=== PATIENT | male | born 1950 | race Caucasian/White ===

== ENCOUNTER 2017-05-19 20:50 | Inpatient (IN) | payer MEDICARE ==
[2017-05-19] MEDS ORDERED: Sodium Chloride 0.9% 1000 ML 1,000 ML IV STA (20:55)
[2017-05-19] MEDS ORDERED: Adacel Vial IM ONE ×2 (21:00→22:02)
[2017-05-19] MEDS ORDERED: BACIGUENT PACKET TP ONE (21:00)
--- NOTE | 2017-05-19 21:05 | ERPHSYRPT ---
- History of Present Illness Source: patient, EMS, police Exam Limitations: clinical condition Patient Subjective Stated Complaint: pt is here per ems after being called by pt gurmeet because pt is falling and very confused -he arr talking but is confused Triage Nursing Assessment: pt is awake and alking but confused Physician History: According to EMS was called at home by the girlfriend patient has been agitated combative and multiple falls with resultant contusions abrasions and bruising and markedly changed mental status from usual state. Multiple medications were found in the home some of which were his and others from the girlfriend who has had a recently broken pelvis. Patient was very agitated and combative for EMS and law enforcement was called and patient was transferred to the hospital at this time. Patient is disoriented to time and place does know the president only. Timing/Duration: today Severity: severe Associated Symptoms: other (confusion/delirium as noted above) Allergies/Adverse Reactions: Penicillins Allergy (Unverified 05/20/17 03:55) Home Medications: Unobtainable [Unobtainable] 05/19/17 [History] - Review of Systems Constitutional: Other (see history of present illness confusion/delirium with multiple traumatic injuries) Eyes: No Symptoms Ears, Nose, & Throat: No Symptoms Respiratory: No Symptoms Cardiac: No Symptoms Abdominal/Gastrointestinal: No Symptoms (morning) Genitourinary Symptoms: No Symptoms Musculoskeletal: No Symptoms Skin: Rash, Skin Lesions, Other (multiple abrasions contusions and ecchymosis on severe psoriasis of her lower extremities) Neurological: Irritability Psychological: Alcohol Abuse (history of), Anxiety, Depression, Emotional Lability, Mood Changes, Other (as noted above) Endocrine: No Symptoms Hematologic/Lymphatic: Easy Bleeding, Easy Bruising Immunological/Allergic: No Symptoms All Other Systems: Reviewed and Negative - Past Medical History Musculoskeletal History: Other (chronic back pain And chronic lower extremity severe psoriasis) History: No Pertinent History Psycho-Social History: Anxiety Male Reproductive Disorders: No Pertinent History - Social History Smoking Status: Current every day smoker Exposure to second hand smoke: Yes Patient Lives Alone: No - Nursing Vital Signs Nursing Vital Signs: Initial Vital Signs Temperature 100 F 05/19/17 20:51 Pulse Rate 120 H 05/19/17 20:51 Respiratory Rate 24 05/19/17 20:51 Blood Pressure 147/75 05/19/17 20:51 O2 Sat by Pulse Oximetry 94 L 05/19/17 20:51 Pain Scale Pain Intensity 0 - Physical Exam General Appearance: moderate distress, alert, anxiety, thin Eye Exam: PERRL/EOMI Ears, Nose, Throat Exam: normal ENT inspection Neck Exam: normal inspection Respiratory Exam: normal breath sounds, lungs clear Cardiovascular Exam: regular rate/rhythm, normal heart sounds, tachycardia, capillary refill <2 sec Gastrointestinal/Abdomen Exam: soft, normal bowel sounds, No tenderness, No distention, No mass, No guarding Male Genitalia Exam: normal genitalia, No hernia Rectal Exam: deferred Back Exam: other (see below) Extremity Exam: other (bilateral knees with circular abrasion but full range of swelling. Diffuse ecchymosis abrasions of her lower extremities but with all full normal range of mo) Neurologic Exam: alert, nml station & gait, disoriented, confusion, agitation Skin Exam: abrasion (as noted), ecchymosis (lower back and gluteal areas) Lymphatic Exam: No adenopathy SpO2 Interpretation: normal SpO2: 94 Oxygen Delivery: Room Air - Course Nursing assessment & vital signs reviewed: Yes EKG Interpreted by Me: RATE (102), Sinus Tach, NORMAL AXIS, NORMAL INTERVALS, NORMAL QRS, Non-specific ST Changes, Other (no previous EKG for comparison) - CT Exams Head CT Interpretation: Negative, Discussed w/radiologist Cervical Spine CT Interpretation: Negative, Discussed w/radiologist Ordered Tests: Active Orders 24 hr Category Date Time Status Up With Assistance ROUTINE Activity 05/20/17 01:41 Active ACCUCHECK [Accucheck] STAT Care 05/19/17 21:06 Completed Admission/Status Order ROUTINE Care 05/20/17 01:41 Active Territory Outside Sales Manager STAT Care 05/19/17 20:55 Completed Clean Catch Urine Specimen STAT Care 05/20/17 00:47 Completed Code Status Order ROUTINE Care 05/20/17 01:41 Active EKG-ER Only STAT Care 05/19/17 21:02 Completed IV Care Q6H Care 05/20/17 01:41 Active IV Insertion STAT Care 05/19/17 20:55 Completed IV Insertion-2nd Peripheral STAT Care 05/19/17 21:58 Completed Miscellaneous Nursing Order ROUTINE Care 05/20/17 01:41 Active NPO (ED) STAT Care 05/19/17 20:55 Completed Neuro Checks Q2H Care 05/20/17 01:41 Active Pulse Oximetry (ED) STAT Care 05/19/17 20:55 Completed Wound Care STAT Care 05/19/17 21:00 Completed CERVICAL SPINE WO CONTRAST [CT] Stat Exams 05/19/17 21:19 Taken HEAD WITHOUT CONTRAST [CT] Stat Exams 05/19/17 21:05 Taken ACETAMINOPHEN Stat Lab 05/19/17 21:10 Completed BLOOD CULTURE Stat Lab 05/19/17 21:50 Received CBC W DIFF Stat Lab 05/19/17 21:10 Completed CBC W DIFF Urgent Lab 05/20/17 01:41 Ordered CK-Creatinine Phosphokinase AM.LAB Lab 05/20/17 04:00 Ordered CK-Creatinine Phosphokinase Urgent Lab 05/19/17 21:10 Completed CMP Stat Lab 05/19/17 21:10 Completed CMP Urgent Lab 05/20/17 01:41 Ordered ETHYL ALCOHOL Stat Lab 05/19/17 21:10 Completed Lactic Acid AM.LAB Lab 05/20/17 03:30 Completed Lactic Acid Stat Lab 05/19/17 21:05 Completed Lactic Acid Stat Lab 05/19/17 23:08 Completed Myoglobin AM.LAB Lab 05/20/17 04:00 Ordered Myoglobin Stat Lab 05/19/17 21:10 Completed PROTIME WITH INR Stat Lab 05/19/17 21:10 Completed PTT Stat Lab 05/19/17 21:10 Completed SALICYLATE Stat Lab 05/19/17 21:10 Completed TROPONIN Q3H Lab 05/19/17 21:10 Completed TROPONIN Q3H Lab 05/20/17 00:20 Completed TROPONIN Q3H Lab 05/20/17 03:05 Completed TROPONIN Q3H Lab 05/20/17 06:00 Ordered TROPONIN Q3H Lab 05/20/17 09:00 Ordered TSH [TSH, 3RD Generation] Stat Lab 05/19/17 21:10 Completed UA W/ MICROSCOPIC Stat Lab 05/19/17 22:35 Completed Urine Triage Profile Stat Lab 05/19/17 22:35 Completed Transfer Order Routine Transfer 05/20/17 00:16 Completed Medication Summary Generic Name Dose Route Start Last Admin Trade Name Freq PRN Reason Stop Dose Admin Potassium Chloride/Sodium Chloride 1,000 mls @ 100 mls/hr 05/20/17 01:41 07/27 02:47 Sodium Chloride 0.9% W/ 40 Meq Kcl 1000ml IV 06/19/17 01:40 100 mls/hr .Q10H FREDDY Administration Lorazepam 0.5 mg 05/20/17 01:41 05/20/17 01:49 Ativan 2 Mg/1 Ml Vial IV 06/19/17 01:40 0.5 mg Q4H PRN PRN Administration ANXIETY/AGITATION Ondansetron HCl 4 mg 05/20/17 01:41 Zofran 4 Mg/2 Ml Vial IV 06/19/17 01:40 Q6H PRN PRN NAUSEA/VOMITING Thiamine HCl 100 mg 05/20/17 03:00 05/20/17 02:47 Thiamine 200 Mg/2 Ml IV 05/20/17 03:01 100 mg ONCE ONE Administration Ziprasidone 20 mg 05/20/17 03:15 05/20/17 03:40 Geodon 20 Mg Inj IM 05/20/17 03:16 20 mg STAT ONE Administration Discontinued Medications Generic Name Dose Route Start Last Admin Trade Name Freq PRN Reason Stop Dose Admin Bacitracin 9 gm 05/19/17 21:00 05/19/17 22:58 Baciguent Packet TP 05/19/17 21:01 0.9 gm STAT ONE Administration Bacitracin Confirm 05/19/17 22:19 Baciguent Packet Administered 05/19/17 22:20 Dose 2 gm .ROUTE .STK-MED ONE Diphtheria/Tetanus/Acell Pertussis 0.5 ml 05/19/17 21:00 05/19/17 22:04 Adacel Vial IM 05/19/17 21:01 0.5 ml .ONCE ONE Administration Diphtheria/Tetanus/Acell Pertussis Confirm 05/19/17 22:02 Adacel Vial Administered 05/19/17 22:03 Dose 0.5 ml IM .STK-MED ONE Sodium Chloride 1,000 mls @ 999 mls/hr 05/19/17 20:55 05/19/17 21:46 Sodium Chloride 0.9% 1000 Ml IV 05/19/17 21:55 999 mls/hr .Q1H1M STA Administration Sodium Chloride Confirm 05/19/17 21:37 Sodium Chloride 0.9% 1000 Ml Administered 05/19/17 21:38 Dose 1,000 mls @ ud .ROUTE .STK-MED ONE Ceftriaxone Sodium/Dextrose 2 g in 50 mls @ 100 mls/hr 05/19/17 21:54 22:03 Rocephin 2 Gm-D5w 50ml Bag IV 05/19/17 22:23 100 mls/hr STAT STA Administration Ceftriaxone Sodium/Dextrose Confirm 05/19/17 22:01 Rocephin 2 Gm-D5w 50ml Bag Administered 05/19/17 22:02 Dose 2 g in 50 mls @ ud IV .STK-MED ONE Lactated Ringer's 1,000 mls @ 999 mls/hr 05/19/17 22:37 05/19/17 22:56 Lactated Ringers IV 05/19/17 23:37 999 mls/hr .Q1H1M ONE Administration Lactated Ringer's Confirm 05/19/17 22:52 Lactated Ringers Administered 05/19/17 22:53 Dose 1,000 mls @ ud IV .STK-MED ONE Sterile Water Confirm 05/20/17 03:38 Sterile Water For Injection 20 Ml Administered 05/20/17 03:39 Dose 20 mls @ ud .ROUTE .STK-MED ONE Lorazepam Confirm 05/20/17 00:23 Ativan 2 Mg/1 Ml Vial Administered 05/20/17 00:24 Dose 2 mg .ROUTE .STK-MED ONE Lorazepam 1 mg 05/20/17 00:28 05/20/17 00:35 Ativan 2 Mg/1 Ml Vial IV 05/20/17 00:29 1 mg STAT ONE Administration Lab/Rad Data: Laboratory Result Diagrams 05/19/17 21:10 05/19/17 21:10 Laboratory Results 05/20/17 05/19/17 05/19/17 Range/Units 00:20 23:08 22:35 WBC (4.0-10.5) K/mm3 RBC (4.1-5.6) M/mm3 Hgb (12.5-18.0) gm/dl Hct (42-50) % MCV (78-100) fl MCH (26-32) pg MCHC (32-36) g/dl RDW (11.5-14.0) % Plt Count (150-450) K/mm3 MPV (6-9.5) fl Gran % (36.0-66.0) % Lymphocytes % (24.0-44.0) % Monocytes % (0.0-12.0) % Eosinophils % (0.00-5.0) % Basophils % (0.0-0.4) % Basophils # (0-0.4) INR (0.8-3.0) APTT (24.1-36.1) SECONDS Sodium (136-145) mEq/L Potassium (3.5-5.1) mEq/L Chloride (98-107) mEq/L Carbon Dioxide (21-32) mEq/L Anion Gap (5-15) MEQ/L BUN (9-20) mg/dL Creatinine (0.55-1.30) mg/dl Estimated GFR ML/MIN Glucose (70-110) MG/DL Lactic Acid 1.1 (0.4-2.0) Calcium (8.5-10.1) mg/dL Total Bilirubin (0.2-1.0) mg/dL AST (15-37) U/L ALT (12-78) U/L Alkaline Phosphatase (46-116) U/L Ammonia (11-32) MMOL/l Creatine Kinase (39-308) U/L Myoglobin (16.3-96.5) NG/ML Troponin I < 0.017 (0.000-0.056) ng/ml Serum Total Protein (6.4-8.2) gm/dL Albumin (3.4-5.0) g/dL TSH 3rd Generation (0.358-3.740) mIU/L Ur Collection Type Urine Color (YELLOW) Urine Appearance (CLEAR) Urine pH (5-6) Ur Specific [place] (1.005-1.025) Urine Protein (Negative) Urine Ketones (NEGATIVE) Urine Blood (0-5) Darrian/ul Urine Nitrite (NEGATIVE) Urine Bilirubin (NEGATIVE) Urine Urobilinogen (0-1) mg/dL Ur Leukocyte Esterase (NEGATIVE) Urine Microscopic RBC (0-2) /HPF Ur Epithelial Cells (FEW) /HPF Amorphous Crystals (NEGATIVE) /HPF Urine Glucose (NEGATIVE) mg/dL Salicylates (2.8-20.0) mg/dl Urine Opiates Level POS. (NEGATIVE) Ur Methadone NEG. (NEGATIVE) Acetaminophen (10-30) ug/ml Urine Barbiturates NEG. (NEGATIVE) Ur Phencyclidine (PCP) NEG. (NEGATIVE) Urine Amphetamine NEG. (NEGATIVE) U Benzodiazepine Level NEG. (NEGATIVE) Urine Cocaine NEG. (NEGATIVE) Urine Marijuana (THC) NEG. (NEGATIVE) Ethyl Alcohol (0.00-0.01) % Specimen Received 05/19/17 05/19/17 05/19/17 Range/Units 22:35 21:10 21:10 WBC (4.0-10.5) K/mm3 RBC (4.1-5.6) M/mm3 Hgb (12.5-18.0) gm/dl Hct (42-50) % MCV (78-100) fl MCH (26-32) pg MCHC (32-36) g/dl RDW (11.5-14.0) % Plt Count (150-450) K/mm3 MPV (6-9.5) fl Gran % (36.0-66.0) % Lymphocytes % (24.0-44.0) % Monocytes % (0.0-12.0) % Eosinophils % (0.00-5.0) % Basophils % (0.0-0.4) % Basophils # (0-0.4) INR (0.8-3.0) APTT (24.1-36.1) SECONDS Sodium (136-145) mEq/L Potassium (3.5-5.1) mEq/L Chloride (98-107) mEq/L Carbon Dioxide (21-32) mEq/L Anion Gap (5-15) MEQ/L BUN (9-20) mg/dL Creatinine (0.55-1.30) mg/dl Estimated GFR ML/MIN Glucose (70-110) MG/DL Lactic Acid (0.4-2.0) Calcium (8.5-10.1) mg/dL Total Bilirubin (0.2-1.0) mg/dL AST (15-37) U/L ALT (12-78) U/L Alkaline Phosphatase (46-116) U/L Ammonia (11-32) MMOL/l Creatine Kinase (39-308) U/L Myoglobin 129.0 H (16.3-96.5) NG/ML Troponin I (0.000-0.056) ng/ml Serum Total Protein (6.4-8.2) gm/dL Albumin (3.4-5.0) g/dL TSH 3rd Generation 2.570 (0.358-3.740) mIU/L Ur Collection Type CLEAN CATCH Urine Color YELLOW (YELLOW) Urine Appearance CLEAR (CLEAR) Urine pH 5.0 (5-6) Ur Specific [place] 1.015 (1.005-1.025) Urine Protein NEGATIVE (Negative) Urine Ketones NEGATIVE (NEGATIVE) Urine Blood 50 (0-5) Darrian/ul Urine Nitrite NEGATIVE (NEGATIVE) Urine Bilirubin NEGATIVE (NEGATIVE) Urine Urobilinogen NORMAL (0-1) mg/dL Ur Leukocyte Esterase NEGATIVE (NEGATIVE) Urine Microscopic RBC 0-2 (0-2) /HPF Ur Epithelial Cells RARE (FEW) /HPF Amorphous Crystals FEW (NEGATIVE) /HPF Urine Glucose NEGATIVE (NEGATIVE) mg/dL Salicylates (2.8-20.0) mg/dl Urine Opiates Level (NEGATIVE) Ur Methadone (NEGATIVE) Acetaminophen (10-30) ug/ml Urine Barbiturates (NEGATIVE) Ur Phencyclidine (PCP) (NEGATIVE) Urine Amphetamine (NEGATIVE) U Benzodiazepine Level (NEGATIVE) Urine Cocaine (NEGATIVE) Urine Marijuana (THC) (NEGATIVE) Ethyl Alcohol (0.00-0.01) % Specimen Received 05/19/17:2235 05/19/17 05/19/17 05/19/17 Range/Units 21:10 21:10 21:10 WBC (4.0-10.5) K/mm3 RBC (4.1-5.6) M/mm3 Hgb (12.5-18.0) gm/dl Hct (42-50) % MCV (78-100) fl MCH (26-32) pg MCHC (32-36) g/dl RDW (11.5-14.0) % Plt Count (150-450) K/mm3 MPV (6-9.5) fl Gran % (36.0-66.0) % Lymphocytes % (24.0-44.0) % Monocytes % (0.0-12.0) % Eosinophils % (0.00-5.0) % Basophils % (0.0-0.4) % Basophils # (0-0.4) INR 1.13 (0.8-3.0) APTT 36.8 H (24.1-36.1) SECONDS Sodium (136-145) mEq/L Potassium (3.5-5.1) mEq/L Chloride (98-107) mEq/L Carbon Dioxide (21-32) mEq/L Anion Gap (5-15) MEQ/L BUN (9-20) mg/dL Creatinine (0.55-1.30) mg/dl Estimated GFR ML/MIN Glucose (70-110) MG/DL Lactic Acid (0.4-2.0) Calcium (8.5-10.1) mg/dL Total Bilirubin (0.2-1.0) mg/dL AST (15-37) U/L ALT (12-78) U/L Alkaline Phosphatase (46-116) U/L Ammonia 25 (11-32) MMOL/l Creatine Kinase 110 (39-308) U/L Myoglobin (16.3-96.5) NG/ML Troponin I < 0.017 (0.000-0.056) ng/ml Serum Total Protein (6.4-8.2) gm/dL Albumin (3.4-5.0) g/dL TSH 3rd Generation (0.358-3.740) mIU/L Ur Collection Type Urine Color (YELLOW) Urine Appearance (CLEAR) Urine pH (5-6) Ur Specific [place] (1.005-1.025) Urine Protein (Negative) Urine Ketones (NEGATIVE) Urine Blood (0-5) Darrian/ul Urine Nitrite (NEGATIVE) Urine Bilirubin (NEGATIVE) Urine Urobilinogen (0-1) mg/dL Ur Leukocyte Esterase (NEGATIVE) Urine Microscopic RBC (0-2) /HPF Ur Epithelial Cells (FEW) /HPF Amorphous Crystals (NEGATIVE) /HPF Urine Glucose (NEGATIVE) mg/dL Salicylates (2.8-20.0) mg/dl Urine Opiates Level (NEGATIVE) Ur Methadone (NEGATIVE) Acetaminophen (10-30) ug/ml Urine Barbiturates (NEGATIVE) Ur Phencyclidine (PCP) (NEGATIVE) Urine Amphetamine (NEGATIVE) U Benzodiazepine Level (NEGATIVE) Urine Cocaine (NEGATIVE) Urine Marijuana (THC) (NEGATIVE) Ethyl Alcohol (0.00-0.01) % Specimen Received 05/19/17 05/19/17 05/19/17 Range/Units 21:10 21:10 21:05 WBC 9.9 (4.0-10.5) K/mm3 RBC 4.56 (4.1-5.6) M/mm3 Hgb 14.5 (12.5-18.0) gm/dl Hct 42.5 (42-50) % MCV 93.2 (78-100) fl MCH 31.8 (26-32) pg MCHC 34.1 (32-36) g/dl RDW 14.7 H (11.5-14.0) % Plt Count 184 (150-450) K/mm3 MPV 10.6 H (6-9.5) fl Gran % 69.3 H (36.0-66.0) % Lymphocytes % 19.7 L (24.0-44.0) % Monocytes % 10.1 (0.0-12.0) % Eosinophils % 0.7 (0.00-5.0) % Basophils % 0.2 (0.0-0.4) % Basophils # 0.02 (0-0.4) INR (0.8-3.0) APTT (24.1-36.1) SECONDS Sodium 139 (136-145) mEq/L Potassium 3.1 L (3.5-5.1) mEq/L Chloride 102 (98-107) mEq/L Carbon Dioxide 23.6 (21-32) mEq/L Anion Gap 16.7 H (5-15) MEQ/L BUN 12 (9-20) mg/dL Creatinine 1.37 H (0.55-1.30) mg/dl Estimated GFR 55 ML/MIN Glucose 111 H (70-110) MG/DL Lactic Acid 2.3 H (0.4-2.0) Calcium 9.5 (8.5-10.1) mg/dL Total Bilirubin 0.70 (0.2-1.0) mg/dL AST 21 (15-37) U/L ALT 12 (12-78) U/L Alkaline Phosphatase 78 (46-116) U/L Ammonia (11-32) MMOL/l Creatine Kinase (39-308) U/L Myoglobin (16.3-96.5) NG/ML Troponin I (0.000-0.056) ng/ml Serum Total Protein 7.5 (6.4-8.2) gm/dL Albumin 4.2 (3.4-5.0) g/dL TSH 3rd Generation (0.358-3.740) mIU/L Ur Collection Type Urine Color (YELLOW) Urine Appearance (CLEAR) Urine pH (5-6) Ur Specific [place] (1.005-1.025) Urine Protein (Negative) Urine Ketones (NEGATIVE) Urine Blood (0-5) Darrian/ul Urine Nitrite (NEGATIVE) Urine Bilirubin (NEGATIVE) Urine Urobilinogen (0-1) mg/dL Ur Leukocyte Esterase (NEGATIVE) Urine Microscopic RBC (0-2) /HPF Ur Epithelial Cells (FEW) /HPF Amorphous Crystals (NEGATIVE) /HPF Urine Glucose (NEGATIVE) mg/dL Salicylates 3.1 (2.8-20.0) mg/dl Urine Opiates Level (NEGATIVE) Ur Methadone (NEGATIVE) Acetaminophen 3.9 L (10-30) ug/ml Urine Barbiturates (NEGATIVE) Ur Phencyclidine (PCP) (NEGATIVE) Urine Amphetamine (NEGATIVE) U Benzodiazepine Level (NEGATIVE) Urine Cocaine (NEGATIVE) Urine Marijuana (THC) (NEGATIVE) Ethyl Alcohol < 0.010 (0.00-0.01) % Specimen Received - Progress Progress: improved, re-examined Progress Note: 05/20/17 00:12"Following a careful discussion with Dr. Rudy Otero regarding the patient who was just recently taken off of Xanax for which she has been on for quite some time. Also patient does have history of heavy drinking. Patient will be admitted to observation [facility]Sur telemetry with Ativan or when necessary and further evaluation by Dr. To in the morning with regard to further testing MRI etc. Discussed with : Blake - Departure Time of Disposition: 00:13 Departure Disposition: Observation Clinical Impression: Multiple traumatic injuries, Multiple contusions, Abrasions of multiple sites, Benzodiazepine withdrawal with delirium, Hypokalemia Altered mental status, unspecified Qualifiers: Altered mental status type: unspecified Qualified Code(s): R41.82 - Altered mental status, unspecified Condition: Fair Critical Care Time: No
[2017-05-19 21:13] LABS: Lactic Acid 2.3 (0.4-2.0)
[2017-05-19 21:20] LABS: BASOPHIL % 0.2 % (0.0-0.4); Eosinophil % 0.7 % (0.00-5.0); Granulocytes % 69.3 % (36.0-66.0); Lymphocytes % 19.7 % (24.0-44.0); Mean Cell Volume 93.2 fl (78-100); Mean Corpuscular Hemoglobin 31.8 pg (26-32); Mean Platelet Volume 10.6 fl (6-9.5); Monocytes % 10.1 % (0.0-12.0); Platelet Count 184 K/mm3 (150-450); Red Blood Count 4.56 M/mm3 (4.1-5.6); Red Cell Distribution Width 14.7 % (11.5-14.0); White Blood Count 9.9 K/mm3 (4.0-10.5)
[2017-05-19] MEDS ORDERED: Sodium Chloride 0.9% 1000 ML 1,000 ML ONE (21:37)
[2017-05-19 21:38] LABS: INR 1.13 (0.8-3.0); PROTIME 12.8 SECONDS (8.83-12.87)
[2017-05-19 21:40] LABS: PTT 36.8 SECONDS (24.1-36.1)
[2017-05-19 21:41] LABS: ALBUMIN 4.2 g/dL (3.4-5.0); ALKALINE PHOSPHATASE 78 U/L (46-116); ANION GAP 16.7 MEQ/L (5-15); BLOOD UREA NITROGEN 12 mg/dL (9-20); CHLORIDE 102 mEq/L (98-107); Carbon Dioxide 23.6 mEq/L (21-32); ETHYL ALCOHOL < 0.010 % (0.00-0.01); Glucose 111 MG/DL (70-110); Potassium 3.1 mEq/L (3.5-5.1); SGOT/AST 21 U/L (15-37); SGPT/ALT 12 U/L (12-78); SODIUM 139 mEq/L (136-145); Total Protein 7.5 gm/dL (6.4-8.2)
[2017-05-19 21:42] LABS: ACETAMINOPHEN 3.9 ug/ml (10-30)
[2017-05-19] MEDS ORDERED: ROCEPHIN 2 Gm-D5w 50ML BAG** 2 G/50 ML IVPB IV STA (21:54)
[2017-05-19 21:57] LABS: TROPONIN < 0.017 ng/ml (0.000-0.056)
[2017-05-19] MEDS ORDERED: ROCEPHIN 2 Gm-D5w 50ML BAG** 2 G/50 ML IVPB IV ONE (22:01)
[2017-05-19] MEDS ORDERED: BACIGUENT PACKET ONE (22:19)
[2017-05-19] MEDS ORDERED: Lactated Ringers 1,000 ML IV ONE ×2 (22:37→22:52)
[2017-05-19 22:54] LABS: ADD URINE CULTURE? NO (NO); Bilirubin NEGATIVE (NEGATIVE); Blood 50 Ery/ul (0-5); COMPLETE URINE MICROSCOPIC? YES; Collection Type CLEAN CATCH; Epithelial Cells RARE /HPF (FEW); Glucose NEGATIVE (NEGATIVE); Leukocyte Esterase NEGATIVE (NEGATIVE)
[2017-05-20] MEDS ORDERED: Ativan 2 MG/1 ML VIAL ONE (00:23)
[2017-05-20] MEDS ORDERED: Ativan 2 MG/1 ML VIAL IV ONE (00:28)
[2017-05-20] MEDS ORDERED: Zofran 4 MG/2 ML VIAL IV PRN (01:41)
[2017-05-20] MEDS: Ativan 2 MG/1 ML VIAL IV PRN ×6 (01:49→18:56)
[2017-05-20] MEDS: SODIUM CHLORIDE 0.9% W/ 40 mEq KCL 1000ML 1,000 ML IV SCH ×2 (02:47→15:59)
[2017-05-20] MEDS ORDERED: THIAMINE 200 MG/2 ML IV ONE (03:00)
[2017-05-20] MEDS ORDERED: Geodon 20 MG INJ IM ONE ×2 (03:15→09:19)
[2017-05-20] MEDS ORDERED: STERILE WATER FOR INJECTION 20 ML 20 ML ONE (03:38)
[2017-05-20 06:28] LABS: BASOPHIL % 0.1 % (0.0-0.4); Eosinophil % 0.9 % (0.00-5.0); Granulocytes % 65.6 % (36.0-66.0); Lymphocytes % 22.6 % (24.0-44.0); Mean Cell Volume 93.6 fl (78-100); Mean Corpuscular Hemoglobin 31.5 pg (26-32); Mean Platelet Volume 10.7 fl (6-9.5); Monocytes % 10.8 % (0.0-12.0); Platelet Count 140 K/mm3 (150-450); Red Blood Count 4.38 M/mm3 (4.1-5.6); Red Cell Distribution Width 14.5 % (11.5-14.0); White Blood Count 7.4 K/mm3 (4.0-10.5)
[2017-05-20 06:52] LABS: ALBUMIN 3.5 g/dL (3.4-5.0); ALKALINE PHOSPHATASE 68 U/L (46-116); ANION GAP 13.4 MEQ/L (5-15); BLOOD UREA NITROGEN 8 mg/dL (9-20); CHLORIDE 105 mEq/L (98-107); Carbon Dioxide 25.8 mEq/L (21-32); Glucose 97 MG/DL (70-110); Potassium 3.1 mEq/L (3.5-5.1); SGOT/AST 24 U/L (15-37); SGPT/ALT 11 U/L (12-78); SODIUM 141 mEq/L (136-145); Total Protein 7.2 gm/dL (6.4-8.2)
[2017-05-20 07:07] LABS: TROPONIN < 0.017 ng/ml (0.000-0.056)
--- NOTE | 2017-05-20 09:20 | PCM.HP ---
History of Present Illness - Chief Complaint Chief Complaint: delirium and hypokalemia Date: 05/20/17 History of Present Illness: is a 66 year old male. 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 She called 911 as he was talking incoherently not making since and kept falling down. He has continued the incoherent speech throughout the night and was trying to get up and pull at things. He was given geodon last night and has woken up this am. He is very restless. he does answer questions appropriately and denies taking any medication that was not prescribed. He was recently weaned off alprazolam and his cymbalta was increased. He states he thinks he is just exhausted he has not been sleeping. - Review of Systems Constitutional: No Fever, No Chills Eyes: No Symptoms Ears, Nose, & Throat: No Symptoms Respiratory: No Cough, No Short Of Breath Cardiac: No Chest Pain, No Edema, No Syncope Abdominal/Gastrointestinal: No Abdominal Pain, No Nausea, No Vomiting, No Diarrhea Genitourinary Symptoms: No Dysuria Musculoskeletal: No Back Pain, No Neck Pain Skin: No Rash Neurological: No Dizziness, No Focal Weakness, No Sensory Changes Psychological: No Symptoms Endocrine: No Symptoms Hematologic/Lymphatic: No Symptoms Immunological/Allergic: No Symptoms Medications & Allergies Home Medications: Home Medication List Unobtainable [Unobtainable] 05/19/17 [History Confirmed 05/19/17] Allergies/Adverse Reactions: Allergies Allergy/AdvReac Type Severity Reaction Status Date / Time Penicillins Allergy Unverified 05/20/17 03:55 - Past Medical History Past Medical History: (Unable to assess.) Neurological History: No Pertinent History ENT History: No Pertinent History Cardiac History: Hypertension CARDIAC HISTORY: Hypertension Respiratory History: No Pertinent History Endocrine Medical History: No Pertinent History Musculoskelatal History: Other (chronic back pain And chronic lower extremity severe psoriasis) History: No Pertinent History Pyscho-Social History: Anxiety Male Reproductive Disorders: No Pertinent History Comment: Unable to assess d/t pt being unreliable historian. Pt unable to provide family information, medical history, surgical history, or allergies. - Past Surgical History Past Surgical History: (unable to assess) Other Surgical History: unobtainable - Social History Smoking Status: Current every day smoker Exposure to second hand smoke: Yes - Physical Exam Vital Signs: Vital Signs - 24 hr Temp Pulse Resp BP Pulse Ox 05/20/17 05:11 94 L 05/20/17 05:01 20 05/20/17 01:01 98.5 F 96 H 20 159/75 96 05/20/17 00:47 70 18 135/88 96 05/19/17 23:24 89 16 144/83 98 05/19/17 21:59 100 F 98 H 20 98 05/19/17 21:57 98 05/19/17 20:51 100 F 120 H 24 147/75 94 L General Appearance: other (is awake traking he is very restless moving all extremities rapidly pressured speech fidgeting and impulsive) Neurologic Exam: alert, disoriented, confusion, abnormal gait, other (unstable gait he was assisted up to the side of the bed to use bedside urinal. He has no obvious focal deficits on exam) Eye Exam: PERRL/EOMI, eyes nml inspection, No scleral icterus, No pale conjunctivae Ears, Nose, Throat Exam: other (blood crusting around lips and oropharynx) Neck Exam: normal inspection, non-tender, supple, full range of motion Respiratory Exam: normal breath sounds, lungs clear, No respiratory distress Cardiovascular Exam: regular rate/rhythm, normal heart sounds, normal peripheral pulses Gastrointestinal/Abdomen Exam: soft, normal bowel sounds, No tenderness, No mass Back Exam: other (multiple contusions and skin tears) Extremity Exam: other (multiple contusions and skin tears consistent with recurrent falls on bilateral upper and lower extremities) Skin Exam: abrasion, ecchymosis, other (chronic psoriasis changes) Lymphatic Exam: No adenopathy Results - Labs Lab/Micro Results: Lab Results-Last 24 Hours 05/20/17 05/20/17 05/20/17 Range/Units 01:41 03:05 03:30 WBC (4.0-10.5) K/mm3 RBC (4.1-5.6) M/mm3 Hgb (12.5-18.0) gm/dl Hct (42-50) % MCV (78-100) fl MCH (26-32) pg MCHC (32-36) g/dl RDW (11.5-14.0) % Plt Count (150-450) K/mm3 MPV (6-9.5) fl Gran % (36.0-66.0) % Lymphocytes % (24.0-44.0) % Monocytes % (0.0-12.0) % Eosinophils % (0.00-5.0) % Basophils % (0.0-0.4) % Basophils # (0-0.4) Sodium 141 (136-145) mEq/L Potassium 3.1 L (3.5-5.1) mEq/L Chloride 105 (98-107) mEq/L Carbon Dioxide 25.8 (21-32) mEq/L Anion Gap 13.4 (5-15) MEQ/L BUN 8 L (9-20) mg/dL Creatinine 0.83 (0.55-1.30) mg/dl Estimated GFR > 60 ML/MIN Glucose 97 (70-110) MG/DL Lactic Acid 1.5 (0.4-2.0) Calcium 8.9 (8.5-10.1) mg/dL Total Bilirubin 0.70 (0.2-1.0) mg/dL AST 24 (15-37) U/L ALT 11 L (12-78) U/L Alkaline Phosphatase 68 (46-116) U/L Creatine Kinase (39-308) U/L Myoglobin (16.3-96.5) NG/ML Troponin I < 0.017 (0.000-0.056) ng/ml Serum Total Protein 7.2 (6.4-8.2) gm/dL Albumin 3.5 (3.4-5.0) g/dL 05/20/17 05/20/17 Range/Units 04:00 06:00 WBC 7.4 (4.0-10.5) K/mm3 RBC 4.38 (4.1-5.6) M/mm3 Hgb 13.8 (12.5-18.0) gm/dl Hct 41.0 L (42-50) % MCV 93.6 (78-100) fl MCH 31.5 (26-32) pg MCHC 33.7 (32-36) g/dl RDW 14.5 H (11.5-14.0) % Plt Count 140 L (150-450) K/mm3 MPV 10.7 H (6-9.5) fl Gran % 65.6 (36.0-66.0) % Lymphocytes % 22.6 L (24.0-44.0) % Monocytes % 10.8 (0.0-12.0) % Eosinophils % 0.9 (0.00-5.0) % Basophils % 0.1 (0.0-0.4) % Basophils # 0.01 (0-0.4) Sodium (136-145) mEq/L Potassium (3.5-5.1) mEq/L Chloride (98-107) mEq/L Carbon Dioxide (21-32) mEq/L Anion Gap (5-15) MEQ/L BUN (9-20) mg/dL Creatinine (0.55-1.30) mg/dl Estimated GFR ML/MIN Glucose (70-110) MG/DL Lactic Acid (0.4-2.0) Calcium (8.5-10.1) mg/dL Total Bilirubin (0.2-1.0) mg/dL AST (15-37) U/L ALT (12-78) U/L Alkaline Phosphatase (46-116) U/L Creatine Kinase 275 (39-308) U/L Myoglobin 204.0 H (16.3-96.5) NG/ML Troponin I < 0.017 (0.000-0.056) ng/ml Serum Total Protein (6.4-8.2) gm/dL Albumin (3.4-5.0) g/dL Assessment/Plan (1) Delirium Current Visit: Yes Status: Acute Assessment & Plan: currently he denies any substance use and the tox screen and alcohol are negative except his prescribed opiates. This may be a manifestation of tin from his Cymbalta being increased or possible alprazolam withdrawal although this appears to have been weaned successfully prior to this past week and he was seen last Jcarlos here with his and was in his normal state when mental status improves will try psych consult will continue to treat supportively had good improvement with the shan will give an additional dose now and continue iv hydration and monitor symptoms his girlfriend was checked on by police and her adult son is there to help her. Code(s): R41.0 - DISORIENTATION, UNSPECIFIED (2) Hypokalemia Current Visit: Yes Status: Acute Code(s): E87.6 - HYPOKALEMIA (3) Multiple traumatic injuries Current Visit: Yes Status: Acute Code(s): T07 - UNSPECIFIED MULTIPLE INJURIES (4) Multiple contusions Current Visit: Yes Status: Acute Code(s): T14.8 - OTHER INJURY OF UNSPECIFIED BODY REGION
[2017-05-20] MEDS: POTASSIUM CHLORIDE 20 mEq IN WATER 100ML 100 ML IV SCH ×2 (09:43→11:40)
[2017-05-20] MEDS: ENOXAPARIN SODIUM SQ SCH (09:43)
--- NOTE | 2017-05-20 11:26 | XRAY ---
Exam: CT of the head without IV contrast from 05/19/2017. CTDI: 58.18 Comparison: None. Indication: Patient fell, altered mental status, multiple contusions and abrasions with petechiae over body. Technique: Non-IV contrast axial images were obtained through the brain. Reconstructed coronal and sagittal images were created and reviewed. Findings: The ventricles appear of normal size and are midline. No focal mass effect or midline shift is seen. No acute intracranial bleed or abnormal extra-axial fluid collection is seen. No low attenuation lesion to suggest an acute territorial infarct or significant focal edema is seen. There are some subtle periventricular and subcortical white matter changes, not inappropriate for the patient's age. Structures of the posterior fossa appear unremarkable. The cortical sulci and sylvian fissures appear within normal limits for the patient's age. I note some vascular calcification within both carotid siphons as well as the distal right vertebral artery. The calvarium of the skull appears intact. The visualized paranasal sinuses appear clear. There is mild deviation of the nasal septum toward the right. The mastoid air cells are clear. The middle ear cavities appear grossly unremarkable. Impression: 1. No acute intracranial bleed or other acute intracranial process is seen.
--- NOTE | 2017-05-20 11:27 | XRAY ---
Exam: CT of the cervical spine without IV contrast from 05/19/2017. CTDI: 94.73 Comparison: None. Indication: Fall, combative, altered mental status, slurred speech, multiple contusions and abrasions, multiple diverticula or body. Technique: Non-IV contrast axial images were obtained of the cervical spine. Reconstructed coronal and sagittal images were created and reviewed. Findings: There is slight convexity of the cervical spine toward the right centered at C4-C5 on the coronal images.. This could be positional. I note some straightening of the cervical spine from C3-C6. This is nonspecific. Consider spasm. I see no acute cervical spine fracture, AP traumatic subluxation, or prevertebral soft tissue swelling. Mild degenerative changes are seen at the preodontoid space. There may be about 1 mm anterior subluxation of C5 over C6 on midline sagittal image #41. This is likely due to some degenerative changes, as mild to moderate posterior facet joint arthropathy is seen at this level. I also note minimal degenerative disc disease at C5-C6 and moderate degenerative disc disease at C6-C7. A small amount of vacuum phenomenon is seen within the C6-C7 disc. Very slight loss of anterior vertebral body height of T1 is seen which I believe is chronic. A small nuchal ligament calcification is seen adjacent to the C6 spinous process posteriorly. There is mild to moderate facet joint arthropathy at C3-C4 and C5-C6 on the right and at C2-C3, C4-C5, and C5-C6 on the left. This appears most pronounced at C4-C5 on the left, followed by C5-C6 and the left. I also note mild uncovertebral osteoarthritis bilaterally at C5-C6 and C6-C7. No cervical ribs are seen. No other focal bone lesion is seen. I see no evidence of significant central canal cervical stenosis. Regarding the neural foramen, there is mild to moderate narrowing of the left C2-C3 neural foramen, mild narrowing of the right C3-C4 neural foramen, moderate to marked narrowing of the left C4-C5 neural foramen, moderate to marked narrowing of the C5-C6 neural foramen bilaterally, moderate narrowing of the left C6-C7 and mild narrowing of the right C6-C7 neural foramen. The visualized lung apices appear unremarkable. Impression: 1. I see no acute cervical spine fracture or AP traumatic subluxation. 2. Degenerative changes are seen throughout the cervical spine, as discussed above. Slight 1 mm anterior subluxation of C5 over C6 is believed to be due to arthritic changes.
[2017-05-20] MEDS: Pepcid 20 MG PO SCH (15:04)
[2017-05-20] MEDS ORDERED: BACIGUENT PACKET TOP PRN (21:16)
[2017-05-20] MEDS: Ativan 2 MG/1 ML VIAL IM PRN (22:16)
[2017-05-21] MEDS ORDERED: Haldol 5 MG IM ONE (00:31)
[2017-05-21] MEDS: Ativan 2 MG/1 ML VIAL IM PRN (01:45)
[2017-05-21 05:37] LABS: BASOPHIL % 0.2 % (0.0-0.4); Eosinophil % 0.2 % (0.00-5.0); Granulocytes % 73.1 % (36.0-66.0); Lymphocytes % 15.3 % (24.0-44.0); Mean Cell Volume 93.3 fl (78-100); Mean Corpuscular Hemoglobin 31.8 pg (26-32); Mean Platelet Volume 10.7 fl (6-9.5); Monocytes % 11.2 % (0.0-12.0); Platelet Count 150 K/mm3 (150-450); Red Blood Count 4.65 M/mm3 (4.1-5.6); Red Cell Distribution Width 14.3 % (11.5-14.0); White Blood Count 11.1 K/mm3 (4.0-10.5)
[2017-05-21] MEDS ORDERED: BACIGUENT 30 GM ONE (06:14)
[2017-05-21] MEDS ORDERED: Ativan 2 MG/1 ML VIAL IM PRN (06:17)
[2017-05-21 06:25] LABS: ALBUMIN 3.8 g/dL (3.4-5.0); ALKALINE PHOSPHATASE 72 U/L (46-116); ANION GAP 17.9 MEQ/L (5-15); BLOOD UREA NITROGEN 8 mg/dL (9-20); CHLORIDE 101 mEq/L (98-107); Carbon Dioxide 24.7 mEq/L (21-32); Glucose 85 MG/DL (70-110); Potassium 3.6 mEq/L (3.5-5.1); SGOT/AST 72 U/L (15-37); SGPT/ALT 19 U/L (12-78); SODIUM 140 mEq/L (136-145); Total Protein 7.8 gm/dL (6.4-8.2)
[2017-05-21] MEDS: BACIGUENT 30 GM TOP PRN ×2 (07:01→16:21)
[2017-05-21] MEDS ORDERED: Rocephin 1000 MG INJ IM ONE (08:15)
[2017-05-21] MEDS ORDERED: Zyprexa Zydis 5 MG PO ONE (08:19)
--- NOTE | 2017-05-21 08:22 | PCM.NOTE ---
Date and Time: 05/21/17816 Subjective Assessment: persistent hallucinations and aggitation. police came last night as he became violent and he was asking them if they could get him any heroin. He is very confused with intermittent brief lucency he denies any pain now he is actively trying to grab an imaginary object in front of him he is mumbling he has not slept much at all since admission he has become more tachycardic and has a new fever this am. Objective Exam General Appearance: no apparent distress Neurologic Exam: alert, other (he follows commands briefly he is actively hallucinating he is mumbling and pressured speech) Skin Exam: warm, dry, ecchymosis, laceration, other (open lacerations and multiple bruises throughout abdomen, back and extremities he has chronic psoriatic changes on his extremities) Ears, Nose, Throat Exam: dry mucous membranes (crusting blood on lips) Neck Exam: supple, full range of motion, No meningismus, No Brudzinski, No Kernig's Lymphatic Exam: No adenopathy Respiratory Exam: normal breath sounds Cardiovascular Exam: tachycardia, No murmur Gastrointestinal/Abdomen Exam: soft, normal bowel sounds, No tenderness OBJECTIVE DATA Vital Signs: Vital Signs - 24 hr Temp Pulse Resp BP Pulse Ox 05/21/17 08:00 100.8 F 117 H 26 H 132/85 93 L 05/21/17 04:00 98.8 F 124 H 20 159/80 93 L 05/20/17 16:00 99.9 F 120 H 22 171/80 95 05/20/17 12:00 99.1 F 107 H 18 153/76 90 L Pain Assessment - Last Documented Pain Intensity 0 Pain Scale Used 0-10 Pain Scale Intake and Output: Intake & Output 05/18/17 05/19/17 05/20/17 05/21/17 11:59 11:59 11:59 11:59 Intake Total 0 1463 Output Total 500 300 Balance -500 1163 Weight 63.503 kg Lab Results: Lab Results-Last 24 Hours 05/20/17 05/21/17 05/21/17 Range/Units 16:49 05:08 05:08 WBC 11.1 H (4.0-10.5) K/mm3 RBC 4.65 (4.1-5.6) M/mm3 Hgb 14.8 (12.5-18.0) gm/dl Hct 43.4 (42-50) % MCV 93.3 (78-100) fl MCH 31.8 (26-32) pg MCHC 34.1 (32-36) g/dl RDW 14.3 H (11.5-14.0) % Plt Count 150 (150-450) K/mm3 MPV 10.7 H (6-9.5) fl Gran % 73.1 H (36.0-66.0) % Lymphocytes % 15.3 L (24.0-44.0) % Monocytes % 11.2 (0.0-12.0) % Eosinophils % 0.2 (0.00-5.0) % Basophils % 0.2 (0.0-0.4) % Basophils # 0.02 (0-0.4) Sodium 140 (136-145) mEq/L Potassium 4.1 3.6 (3.5-5.1) mEq/L Chloride 101 (98-107) mEq/L Carbon Dioxide 24.7 (21-32) mEq/L Anion Gap 17.9 H (5-15) MEQ/L BUN 8 L (9-20) mg/dL Creatinine 0.84 (0.55-1.30) mg/dl Estimated GFR > 60 ML/MIN Glucose 85 (70-110) MG/DL Calcium 9.5 (8.5-10.1) mg/dL Total Bilirubin 1.20 H (0.2-1.0) mg/dL AST 72 H (15-37) U/L ALT 19 (12-78) U/L Alkaline Phosphatase 72 (46-116) U/L Serum Total Protein 7.8 (6.4-8.2) gm/dL Albumin 3.8 (3.4-5.0) g/dL Multi-Disciplinary Progress Notes: Multi-Disciplinary Progress Notes 05/20/17 13:44 Case Management Note by Bri Peters PT IS CONFUSED UNABLE TO ASSESS ANY DISCHARGE NEEDS AT THIS TIME. 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 NO FAMILY OR VISTORS PRESENT. Initialized on 05/20/17 13:44 - END OF NOTE Assessment/Plan (1) Delirium Current Visit: Yes Status: Acute Assessment & Plan: appears likely ingestion of some substance at this time bath salt level pending he has not had iv in all night as he pulled them all out Ativan did not help Geno was little help will try zyprexa sublingual if no help haldol 5mg q30 min until calm tele iv fluids at 150 mL/h will give rocephin IM 1g now while no iv available Code(s): R41.0 - DISORIENTATION, UNSPECIFIED (2) Hypokalemia Current Visit: Yes Status: Resolved Code(s): E87.6 - HYPOKALEMIA (3) Multiple traumatic injuries Current Visit: Yes Status: Acute Code(s): T07 - UNSPECIFIED MULTIPLE INJURIES (4) Multiple contusions Current Visit: Yes Status: Acute Code(s): T14.8 - OTHER INJURY OF UNSPECIFIED BODY REGION
[2017-05-21] MEDS ORDERED: XYLOCAINE 1% HCL 20 ML MDV IJ PRN (08:24)
[2017-05-21] MEDS: Haldol 5 MG IM PRN ×6 (08:26→11:03)
[2017-05-21] MEDS ORDERED: zanTAC 150 MG/10 ML SYRUP PO SCH (10:00)
[2017-05-21] MEDS ORDERED: NON-FORMULARY ITEM (Ranitidine Hcl [Ranitidine Hcl] 300 MG) PO SCH (10:00)
[2017-05-21] MEDS: ENOXAPARIN SODIUM SQ SCH (10:57)
[2017-05-21] MEDS: Dextrose 5% -0.45 NaCl 1000 ML 1,000 ML IV SCH ×3 (11:18→22:37)
[2017-05-21] MEDS ORDERED: Lactated Ringers 1,000 ML IV ONE (11:40)
[2017-05-21] MEDS: PROTONIX 40 MG IV IV SCH (11:55)
[2017-05-21] MEDS: Pepcid 20 MG PO SCH (12:10)
[2017-05-21] MEDS: VALIUM 10 MG/2 ML SYRINGE IV PRN ×4 (12:19→23:10)
[2017-05-21] MEDS: MORPHINE SULFATE 2 MG INJ IV PRN (20:29)
[2017-05-22] MEDS: MORPHINE SULFATE 2 MG INJ IV PRN ×2 (02:19→14:09)
[2017-05-22] MEDS: Dextrose 5% -0.45 NaCl 1000 ML 1,000 ML IV SCH ×2 (05:38→17:54)
[2017-05-22 06:11] LABS: BASOPHIL % 0.1 % (0.0-0.4); Eosinophil % 0.9 % (0.00-5.0); Lymphocytes % 19.5 % (24.0-44.0); Mean Cell Volume 92.1 fl (78-100); Monocytes % 9.5 % (0.0-12.0); Platelet Count 160 K/mm3 (150-450); Red Blood Count 4.41 M/mm3 (4.1-5.6); White Blood Count 7.5 K/mm3 (4.0-10.5)
[2017-05-22 06:38] LABS: ALBUMIN 3.2 g/dL (3.4-5.0); ALKALINE PHOSPHATASE 63 U/L (46-116); ANION GAP 14.2 MEQ/L (5-15); BLOOD UREA NITROGEN 4 mg/dL (9-20); CHLORIDE 100 mEq/L (98-107); Carbon Dioxide 25.5 mEq/L (21-32); Glucose 130 MG/DL (70-110); SGOT/AST 107 U/L (15-37); SGPT/ALT 28 U/L (12-78); SODIUM 137 mEq/L (136-145); Total Protein 7.3 gm/dL (6.4-8.2)
[2017-05-22 06:41] LABS: Potassium 2.7 mEq/L (3.5-5.1)
[2017-05-22] MEDS: POTASSIUM CHLORIDE 20 mEq IN WATER 100ML 20 MEQ/100 ML BAG IV SCH ×2 (07:37→09:42)
[2017-05-22] MEDS ORDERED: FOLNATE IV SCH (08:00)
[2017-05-22] MEDS ORDERED: VITAMINS FOR INFUSION IV SCH (08:00)
[2017-05-22] MEDS ORDERED: [UNRECOGNIZED DRUG - OTHER] IV SCH (08:00)
[2017-05-22] MEDS: ROCEPHIN 1 Gm-D5w 50 ml Bag** 1 G/50 ML IVPB IV SCH ×2 (08:46→09:19)
[2017-05-22] MEDS: PROTONIX 40 MG IV IV SCH (09:42)
[2017-05-22] MEDS: ENOXAPARIN SODIUM SQ SCH (09:42)
[2017-05-22] MEDS ORDERED: TYLENOL 325 MG PO PRN (13:51)
--- NOTE | 2017-05-22 14:03 | PCM.NOTE ---
Date and Time: 05/22/17 7040 Subjective Assessment: He reports that he thinks he may have taken his 's 60 mg cymbalta instead of his 30 mg cymbalta. His nurse states he has not needed any diazepam today. The patient attributes his bruises to bumping into things easily and a history of easy bruising which he wants to see a Transverse Abdominal Muscle Nurse about sometime in the future. He reports he is safe at home. He denies any illicit drug use. 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 Polite. strength 4/5 in right arm and right leg and 5/5 in left arm and left leg, some past pointing on finger to nose evaluation. Gait not tested. Normal speech) Skin Exam: normal color, warm, ecchymosis, other (Multiple bruises over arms with dressings over forearms, multiple bruises on lower legs with scrapes of shins and also brusing over left lower back and upper buttocks. SWEETIE Villasenor present for exam.) Respiratory Exam: normal breath sounds, lungs clear, No crackles/rales, No rhonchi, No wheezing Cardiovascular Exam: tachycardia, other (regular rhythm), No murmur, No friction rub, No gallop Gastrointestinal/Abdomen Exam: soft, normal bowel sounds, No tenderness, No distention, No mass, No guarding Extremity Exam: other (no c/c/e) OBJECTIVE DATA Vital Signs: Vital Signs - 24 hr Temp Pulse Resp BP Pulse Ox 05/22/17 12:00 110 H 05/22/17 11:59 99.2 F 101 H 23 154/79 95 05/22/17 08:00 98.7 F 105 H 21 134/75 94 L 05/22/17 04:00 101 H 05/22/17 03:50 100.3 F 106 H 23 105/69 94 L 08/11/17 23:55 98.8 F 100 H 27 H 142/80 96 05/21/17 23:00 98.8 F 105 H 20 165/76 96 05/21/17 22:00 98.8 F 107 H 24 122/89 97 05/21/17 21:55 98.8 F 107 H 24 122/89 99 05/21/17 21:00 98.8 F 100 H 34 H 106/88 99 05/21/17 19:24 98.8 F 97 H 24 131/97 99 05/21/17 18:56 99 H 22 159/76 96 05/21/17 17:54 99 H 21 153/76 97 05/21/17 16:58 108 H 18 138/92 94 L 05/21/17 15:52 108 H 20 147/96 94 L 05/21/17 14:50 98.8 F 102 H 27 H 116/71 97 05/21/17 13:59 103 H 27 H 109/65 94 L Pain Assessment - Last Documented Pain Intensity 7 Pain Scale Used 0-10 Pain Scale Intake and Output: Intake & Output 05/20/17 05/21/17 05/22/17 05/23/17 06:59 06:59 06:59 06:59 Intake Total 3579 Output Total 550 Balance 3579 -550 Weight 63.503 kg Lab Results: Lab Results-Last 24 Hours 05/22/17 05/22/17 05/22/17 Range/Units 05:00 06:00 06:00 WBC 7.5 (4.0-10.5) K/mm3 RBC 4.41 (4.1-5.6) M/mm3 Hgb 14.1 (12.5-18.0) gm/dl Hct 40.6 L (42-50) % MCV 92.1 (78-100) fl MCH 32.0 (26-32) pg MCHC 34.7 (32-36) g/dl RDW 14.0 (11.5-14.0) % Plt Count 160 (150-450) K/mm3 MPV 11.0 H (6-9.5) fl Gran % 70.0 H (36.0-66.0) % Lymphocytes % 19.5 L (24.0-44.0) % Monocytes % 9.5 (0.0-12.0) % Eosinophils % 0.9 (0.00-5.0) % Basophils % 0.1 (0.0-0.4) % Basophils # 0.01 (0-0.4) Sodium 137 (136-145) mEq/L Potassium 2.7 L* (3.5-5.1) mEq/L Chloride 100 (98-107) mEq/L Carbon Dioxide 25.5 (21-32) mEq/L Anion Gap 14.2 (5-15) MEQ/L BUN 4 L (9-20) mg/dL Creatinine 0.72 (0.55-1.30) mg/dl Estimated GFR > 60 ML/MIN Glucose 130 H (70-110) MG/DL Calcium 8.7 (8.5-10.1) mg/dL Magnesium 1.4 L (1.8-2.4) mg/dL Total Bilirubin 1.00 (0.2-1.0) mg/dL AST 107 H (15-37) U/L ALT 28 (12-78) U/L Alkaline Phosphatase 63 (46-116) U/L Serum Total Protein 7.3 (6.4-8.2) gm/dL Albumin 3.2 L (3.4-5.0) g/dL Radiology Exams: Radiology Procedures Category Date Time Status MRI BRAIN W & W/O CONTRAST [MRI] Routine Exams 05/24/17 08:00 Ordered Assessment/Plan (1) Delirium Current Visit: Yes Status: Acute Assessment & Plan: Much improved today. Continue diazepam as needed for anxiety/agitation. Code(s): R41.0 - DISORIENTATION, UNSPECIFIED (2) Abrasions of multiple sites Current Visit: Yes Status: Acute Code(s): T14.8 - OTHER INJURY OF UNSPECIFIED BODY REGION (3) Multiple contusions Current Visit: Yes Status: Acute Code(s): T14.8 - OTHER INJURY OF UNSPECIFIED BODY REGION (4) Hypokalemia Current Visit: Yes Status: Resolved Assessment & Plan: Patient receiving 40 meq KCl IV and Magnesium checked and also low. Code(s): E87.6 - HYPOKALEMIA (5) Hypomagnesemia Current Visit: Yes Status: Acute Assessment & Plan: 2 grams of magnesium sulfate and start magnesium 400 mg po daily. Code(s): E83.42 - HYPOMAGNESEMIA (6) Chronic back pain Current Visit: Yes Status: Acute Assessment & Plan: Restart hydrocodone 10 mg po q6 hours prn pain. He was given morphine last night as his nurse was not sure he could swallow well. Code(s): M54.9 - DORSALGIA, UNSPECIFIED; G89.29 - OTHER CHRONIC PAIN (7) Right-sided muscle weakness Current Visit: Yes Status: Acute Code(s): M62.81 - MUSCLE WEAKNESS ( GENERALIZED) (8) Right sided weakness Current Visit: Yes Status: Acute Assessment & Plan: Order MRI for Wednesday. Head CT was neg on admission. Code(s): R53.1 - WEAKNESS
[2017-05-22] MEDS ORDERED: Magnesium Sulfate 1 GM/2 ML VIAL IV ONE (14:30)
[2017-05-22] MEDS: Magnesium 1 Gm / 100 Ml D5W*** 100 ML IV SCH ×2 (14:44→16:09)
[2017-05-22 16:31] LABS: Potassium 3.3 mEq/L (3.5-5.1)
[2017-05-22 19:33] LABS: CHLAMYDIA URINE NEGATIVE; GC URINE NEGATIVE
[2017-05-22] MEDS: Norco 10/325 MG Tablet PO PRN (22:37)
[2017-05-23] MEDS: Dextrose 5% -0.45 NaCl 1000 ML 1,000 ML IV SCH ×2 (01:05→07:58)
[2017-05-23] MEDS: Norco 10/325 MG Tablet PO PRN ×3 (05:05→19:50)
[2017-05-23] MEDS: ROCEPHIN 1 Gm-D5w 50 ml Bag** 1 G/50 ML IVPB IV SCH (09:11)
[2017-05-23] MEDS: ENOXAPARIN SODIUM SQ SCH (09:11)
[2017-05-23] MEDS: PROTONIX 40 MG IV IV SCH (09:11)
[2017-05-23] MEDS: MAG-OX 400 PO SCH (09:12)
--- NOTE | 2017-05-23 09:30 | PCM.NOTE ---
Date and Time: 05/23/17924 Subjective Assessment: He reports his right ribs are sore. He is concerned about his significant other at home. He had his [facility] tele medicine consult. He is agreeable to going to outpatient therapy at [facility] or [place]. He reports he has a history of right sided weakness and right foot drop. He continues to say that he thinks he accidently took one of his significant other's pills. - Review of Systems Constitutional: Fatigue Eyes: No Symptoms Ears, Nose, & Throat: No Symptoms Respiratory: No Symptoms Cardiac: No Symptoms Abdominal/Gastrointestinal: No Symptoms Genitourinary Symptoms: No Symptoms Musculoskeletal: Back Pain, Other (rib pain, generalized muscle pain) Skin: Other (multiple bruises, skinned knees) Psychological: No Symptoms Objective Exam General Appearance: no apparent distress, alert Neurologic Exam: alert, oriented x 3, cooperative, other (knows place, year, who president of is and his full name. Strength 4/5 in right arm and right leg and 5/5 on left side.) Skin Exam: normal color, warm, dry, other (multiple bruises over arms and legs and right lower back. Dressings in place on forearms bilat) Respiratory Exam: normal breath sounds, lungs clear, other (tender over right lower ribs.), No crackles/rales, No wheezing Cardiovascular Exam: regular rate/rhythm, normal heart sounds, No murmur, No friction rub, No gallop Gastrointestinal/Abdomen Exam: soft, normal bowel sounds, No tenderness, No distention, No mass Extremity Exam: other (no c/c/e) OBJECTIVE DATA Vital Signs: Vital Signs - 24 hr Temp Pulse Resp BP Pulse Ox 05/23/17 08:59 98.5 F 99 H 22 115/80 95 05/23/17 08:00 97 H 05/23/17 05:03 98.3 F 91 H 21 141/77 95 05/23/17 04:00 86 05/23/17 00:00 98.7 F 106 H 25 H 109/65 95 05/22/17 20:00 98.7 F 96 H 19 140/83 96 05/22/17 16:00 98.6 F 98 H 28 H 137/70 95 05/22/17 12:00 110 H 05/22/17 11:59 99.2 F 101 H 23 154/79 95 Pain Assessment - Last Documented Pain Intensity 2 Pain Scale Used 0-10 Pain Scale Intake and Output: Intake & Output 05/21/17 05/22/17 05/23/17 05/24/17 06:59 06:59 06:59 06:59 Intake Total 3579 3253 Output Total 550 Balance 357 2705 Weight 63.503 kg Lab Results: Lab Results-Last 24 Hours 05/22/17 05/22/17 Range/Units 14:50 14:50 Potassium 3.3 L (3.5-5.1) mEq/L Vitamin B12 474 (193-986) Folic Acid 38.2 (8.6-58.9) RPR Pending Ur Chlamydia DNA Probe NEGATIVE Urine GC DNA Probe NEGATIVE Hep Bs Antigen Pending Hep Bs Antibody, Quant Pending Hepatitis C Ab (EIA) Pending HIV Ag/Ab Combo Qual Pending HIV 1&2 Antibody Interp Pending Radiology Exams: Radiology Procedures Category Date Time Status MRI BRAIN W & W/O CONTRAST [MRI] Routine Exams 05/24/17 08:00 Ordered RIBS UNILATERAL Routine Exams 05/23/17 09:23 Ordered Multi-Disciplinary Progress Notes: Multi-Disciplinary Progress Notes 05/22/17 14:44 Case Management Note by Leonie Matos DISCHARGE PLANS REVIEWED. PT GIVEN INFORMATION REGARDING HIS SIGNIFICANT OTHER , TO SET HIS MIND AT REST. PT WILL HAVE PSYCH EVAL LATER TODAY, PER NURSEFERMIN. PT QUIET AND PASSIVE, EASY TO TALK WITH TODAY. NORMALLY LIVES AT HOME WITH SIGNIFICANT OTHER, INDEPENDENT OF ALL ADL'S. PLAN TO BE RELEASED TO PRE EPISODIC LEVEL OF FUNCTION. Initialized on 05/22/17 14:44 - END OF NOTE Assessment/Plan (1) Delirium Current Visit: Yes Status: Resolved Assessment & Plan: Resolved. RPR pending (ordered in high risk profile). Folic acid and Vit B 12 normal. TSH was checked earlier and was normal. Code(s): R41.0 - DISORIENTATION, UNSPECIFIED (2) Abrasions of multiple sites Current Visit: Yes Status: Acute Code(s): T14.8 - OTHER INJURY OF UNSPECIFIED BODY REGION (3) Multiple contusions Current Visit: Yes Status: Acute Code(s): T14.8 - OTHER INJURY OF UNSPECIFIED BODY REGION (4) Hypokalemia Current Visit: Yes Status: Resolved Assessment & Plan: Improved at 3.3 yesterday. Continue oral potassium. Code(s): E87.6 - HYPOKALEMIA (5) Hypomagnesemia Current Visit: Yes Status: Acute Assessment & Plan: Continue oral magnesium. Code(s): E83.42 - HYPOMAGNESEMIA (6) Chronic back pain Current Visit: Yes Status: Acute Assessment & Plan: On home medication. INSPECT reviewed yesterday. Code(s): M54.9 - DORSALGIA, UNSPECIFIED; G89.29 - OTHER CHRONIC PAIN (7) Right-sided muscle weakness Current Visit: Yes Status: Acute Assessment & Plan: Check MRI of brain tomorrow. MRI not available here on weekends. Code(s): M62.81 - MUSCLE WEAKNESS (GENERALIZED) (8) Sinus tachycardia Current Visit: Yes Status: Acute Assessment & Plan: Start metoprolol succinate 25 mg po daily. Code(s): R00.0 - TACHYCARDIA, UNSPECIFIED (9) Anxiety Current Visit: Yes Status: Acute Assessment & Plan: To follow up with counselor as outpatient. [facility] consult completed. Code(s): F41.9 - ANXIETY DISORDER, UNSPECIFIED
[2017-05-23] MEDS ORDERED: VALIUM 10 MG/2 ML SYRINGE IV PRN (09:33)
[2017-05-23] MEDS: THERAGRAN MULTIVITAMIN PO SCH ×2 (11:20→14:44)
[2017-05-23] MEDS: Toprol-Xl 25MG Tablets PO SCH ×2 (11:20→14:44)
--- NOTE | 2017-05-23 21:23 | XRAY ---
Indication: Pain following fall 4 days ago. Comparison: None 2 views of the right ribs demonstrates nondisplaced lateral 9th rib fracture. No other bony, articular, or soft tissue abnormalities. Comment: Preliminary interpretation was made by [facility]. No critical discrepancy.
[2017-05-24] MEDS: Dextrose 5% -0.45 NaCl 1000 ML 1,000 ML IV SCH (00:36)
[2017-05-24] MEDS: Norco 10/325 MG Tablet PO PRN ×3 (02:07→14:36)
[2017-05-24] MEDS ORDERED: Toprol-Xl 25MG Tablets PO SCH (09:15)
[2017-05-24] MEDS: ENOXAPARIN SODIUM SQ SCH (09:31)
[2017-05-24] MEDS: Toprol-Xl 25MG Tablets PO SCH (09:31)
[2017-05-24] MEDS: THERAGRAN MULTIVITAMIN PO SCH (09:31)
[2017-05-24] MEDS: PROTONIX 40 MG IV IV SCH (09:31)
[2017-05-24] MEDS: MAG-OX 400 PO SCH (09:31)
[2017-05-24] MEDS: ROCEPHIN 1 Gm-D5w 50 ml Bag** 1 G/50 ML IVPB IV SCH (09:32)
[2017-05-24] MEDS ORDERED: DULCOLAX 5 MG PO SCH (10:00)
[2017-05-24 10:35] LABS: Hepatitis B Surface Ab.Quant 12.77 mIU/mL (0.00-8.49)
[2017-05-24 10:38] LABS: Hepatitis B Sur Ag Screen Non Reactive (Non Reactive)
[2017-05-24 11:34] VITALS: BP 108/67; PULSE 96; O2SAT 96
--- NOTE | 2017-05-24 13:41 | PCM.DCORD ---
- Discharge Discharge Date: 05/24/17 Disposition: Home, Self-Care Condition: Fair Prescriptions: Continue Metoprolol Tartrate 25 mg [Lopressor 25MG Tab] 25 mg PO BID Potassium Chloride 10 Meq Tab* [Klor Con 10 MEQ] 10 meq PO .PRN Amlodipine Besylate 5 mg [Norvasc 5 mg] 5 mg PO DAILY Furosemide 20 mg [Lasix 20 mg] 20 mg PO .PRN Magnesium Oxide 400 mg [Mag-Ox 400] 400 mg PO DAILY Potassium Chloride 10 Meq Tab* [Klor Con 10 MEQ] 10 meq PO DAILY Hydrocodone/APAP 10/325 mg [[place] 10/325 MG Tablet] 1 tab PO Q6H PRN PRN PRN Reason: Pain Naproxen Sodium [Aleve] 220 mg PO BID PRN PRN PRN Reason: Pain Ranitidine HCl 300 mg PO DAILY Discontinued Hydrocodone/APAP 10/325 mg [[place] 10/325 MG Tablet] 1 tab PO QID Alprazolam [Xanax] 0.5 mg PO QID Duloxetine HCl 30 mg [Cymbalta 30 MG Capsule] 30 mg PO DAILY Alprazolam 0.25 mg [xanAX 0.25 MG] 0.25 mg PO TID Follow up with: SHELIA LYNN [Primary Care Provider] - 05/31/17 9:45 am
--- NOTE | 2017-05-24 20:20 | PCM.DS ---
Discharge Summary Date of Admission: 05/21/17 08: Date of Discharge: 05/24/17 Admitting Physician: SHELIA LYNN Primary Care Provider: SHELIA LYNN Allergies Allergies adhesive tape Allergy (Verified 02/18/17 16:26) latex Allergy (Verified 02/18/17 16:26) Penicillins Allergy (Verified 05/28/15 21:51) aspirin Adverse Reaction (Verified 05/28/15 21:51) Hospital Summary - Hospital Course Hospital Course: Mr. Meyer presented to ED with falls and confusion. He was disoriented and actively hallucinating. He denied any ingestion. His significant other who was bed bound called 911 as he was falling into things and confused. He was admitted for observation and treatment of delirium. He was given ativan, geodon and this did not improve his delirium. He was very impulsive and actively hallucinating and talking in pressured speech and at times mumbling incomprehensibly he was fidgeting in bed constantly moving all his extremities. He continued this for 48 hours after admission and was given initially geodon and ativan with little improvement followed by zyprexa followed by haldol and eventually improved with iv valium in the icu. He then awoke and was slightly disoriented on Wednesday before being fully oriented on Wednesday but had right sided weakness and with his continued denial of any ingestion he was kept overnight for MRI of the brain which was completed on day of discharge without significant findings. His tox screen was only positive for opiates of which he is taking. He has a lab for bath salts that is still pending. He thinks he may have taken his significant other's cymbalta as well as his. He reports he was exhausted with being up caring for her prior to the episode as she is bedbound with pelvic insufficiency fractures. He had multiple contusions which were improving and pain in the right ribs where a rib fracture was discovered. tele psychiatry eval was completed and outpatient follow up was recommended. His cymbalta was stopped over possibility of precipitating tin; however the symptoms seemed more consistent with an ingestion then tin. - Vitals & Intake/Output Vital Signs: Vital Signs Temperature 98.1 F 05/24/17 11:33 Pulse Rate 96 H 05/24/17 11:33 Respiratory Rate 18 05/24/17 11:33 Blood Pressure 108/67 05/24/17 11:33 O2 Sat by Pulse Oximetry 96 05/24/17 11:33 Intake & Output: Intake & Output 05/22/17 05/23/17 05/24/17 05/25/17 11:59 11:59 11:59 11:59 Intake Total 3579 3253 1057 Output Total 550 Balance 3029 3253 1057 Weight 63.503 kg - Lab Result Diagrams: 05/22/17 06:00 05/22/17 14:50 Lab Results-Last 24 Hrs: Lab Results-Last 24 Hours 05/22/17 Range/Units 14:50 Hep Bs Antigen Non Reactive (Non Reactive) Hep Bs Antibody, Quant 12.77 H (0.00-8.49) mIU/mL Hepatitis C Ab (EIA) Weak Reactive H (Non Reactive) HIV Ag/Ab Combo Qual Non Reactive (Non Reactive) HIV 1&2 Antibody Interp See Result Note: - Radiology Exams Ordered Rad Exams-Entire Visit: Radiology Procedures Category Date Time Status MRI BRAIN W & W/O CONTRAST [MRI] Routine Exams 05/24/17 08:00 Taken RIBS UNILATERAL Routine Exams 05/23/17 09:23 Completed Discharge Exam General Appearance: no apparent distress Neurologic Exam: alert, oriented x 3, cooperative Skin Exam: warm, dry, abrasion, ecchymosis, other (multiple bruising abdomen, chest, back, and extremities that is improving pain on the right ribs), No jaundice Eye Exam: PERRL, No scleral icterus Ears, Nose, Throat Exam: moist mucous membranes Neck Exam: non-tender, supple Respiratory Exam: normal breath sounds, lungs clear Cardiovascular Exam: regular rate/rhythm, normal heart sounds, normal peripheral pulses Gastrointestinal/Abdomen Exam: soft, normal bowel sounds, No tenderness Extremity Exam: No calf tenderness, No pedal edema Final Diagnosis/Problem List - Final Discharge Diagnosis/Problem (1) Multiple traumatic injuries Status: Acute (2) Multiple contusions Status: Acute (3) Hypokalemia Status: Resolved (4) Delirium Status: Resolved (5) Hepatitis C Status: Chronic Assessment & Plan: previous treated - Discharge Discharge Date: 05/24/17 Disposition: Home, Self-Care Condition: Fair Prescriptions: Continue Metoprolol Tartrate 25 mg [Lopressor 25MG Tab] 25 mg PO BID Potassium Chloride 10 Meq Tab* [Klor Con 10 MEQ] 10 meq PO .PRN Amlodipine Besylate 5 mg [Norvasc 5 mg] 5 mg PO DAILY Furosemide 20 mg [Lasix 20 mg] 20 mg PO .PRN Magnesium Oxide 400 mg [Mag-Ox 400] 400 mg PO DAILY Potassium Chloride 10 Meq Tab* [Klor Con 10 MEQ] 10 meq PO DAILY Hydrocodone/APAP 10/325 mg [[place] 10/325 MG Tablet] 1 tab PO Q6H PRN PRN PRN Reason: Pain Naproxen Sodium [Aleve] 220 mg PO BID PRN PRN PRN Reason: Pain Ranitidine HCl 300 mg PO DAILY Discontinued Hydrocodone/APAP 10/325 mg [[place] 10/325 MG Tablet] 1 tab PO QID Alprazolam [Xanax] 0.5 mg PO QID Duloxetine HCl 30 mg [Cymbalta 30 MG Capsule] 30 mg PO DAILY Alprazolam 0.25 mg [xanAX 0.25 MG] 0.25 mg PO TID Instructions: Delirium Tremens, Hypokalemia Follow up with: SHELIA LYNN [Primary Care Provider] - 05/31/17 9:45 am Forms: Discharge Instructions
[2017-05-25 12:58] LABS: MPVD None Det ng/mL
--- NOTE | 2017-05-26 14:41 | XRAY ---
Indication: Right-sided weakness. Confusion. Sagittal, coronal, and axial MRI brain was performed using pre-and post T1, T2, FLAIR, diffusion, and ADC sequences. 10 cc Magnevist contrast used. Comparison: None Age-appropriate global atrophy and minimal periventricular degenerative micro-ischemia bilaterally. Prominent Virchow Ashok spaces bilaterally. No acute intracranial hemorrhage, abnormal extra-axial fluid collection, or mass effect. Diffusion images are negative for restricted signal. Following gadolinium administration, there is no abnormal enhancing intra or extra-axial mass. Fourth ventricle is midline without hydrocephalus. 7/8 cranial nerve complex bilaterally symmetric. Normal flow void signal within the major intracerebral circulation. Normal-appearing craniocervical junction and sella turcica. Paranasal sinuses are essentially clear. Impression: 1. Normal aging brain as evidenced by atrophy and degenerative micro-ischemia. 2. No acute intracranial abnormalities or evidence for evolving large vessel territory stroke. 3. Negative contrast exam.
== END 2017-05-24 16:00 | disposition home or self-care (01) | DRG 605 ==
LOC: ED 20:50 → MED SURG 05-20 00:54 → ICU 05-21 08:15 → OBSVTOIN 05-21 08:17 → MED SURG 05-23 10:00
PROVIDERS: ADMIT Family Medicine; ATTEND Family Medicine
DX: S40.029A Contusion of unspecified upper arm, initial encounter (principal); S80.12XA Contusion of left lower leg, initial encounter; S80.11XA Contusion of right lower leg, initial encounter; S30.0XXA Contusion of lower back and pelvis, initial encounter; S30.1XXA Contusion of abdominal wall, initial encounter; S20.219A Contusion of unspecified front wall of thorax, initial encounter; S80.212A Abrasion, left knee, initial encounter; S80.211A Abrasion, right knee, initial encounter; S30.810A Abrasion of lower back and pelvis, initial encounter; R29.6 Repeated falls; E87.6 Hypokalemia; R41.0 Disorientation, unspecified; B19.20 Unspecified viral hepatitis C without hepatic coma; E83.42 Hypomagnesemia; I10 Essential (primary) hypertension; F41.9 Anxiety disorder, unspecified; R26.9 Unspecified abnormalities of gait and mobility; L40.9 Psoriasis, unspecified; R58 Hemorrhage, not elsewhere classified; M25.50 Pain in unspecified joint; M54.9 Dorsalgia, unspecified; G89.29 Other chronic pain; F45.42 Pain disorder with related psychological factors; M62.81 Muscle weakness (generalized); R53.1 Weakness; Z79.899 Other long term (current) drug therapy
CPT/HCPCS: 36000; 36415; 70450; 70553; 71100; 72125; 80053; 80307; 80371; 81000; 82140; 82550; 82607; 82746; 82962; 83605; 83735; 83874; 84132; 84443; 84484; 85025; 85610; 85730; 86317; 86592; 86701; 86702; 86803; 87040; 87340; 87389; 87491; 87591; 90471; 90715; 90791; 93005; 93041; 96360; 96365; 99285; G0378; G0481; J0696; J1630; J1650; J2060; J2270; J3360; J3475; J3480; J3486; Q3014; A9270-GY

== ENCOUNTER 2017-07-20 13:05 | Emergency (ER) | payer MEDICARE ==
[2017-07-20 13:17] VITALS: BP 156/92; PULSE 104; O2SAT 93
== END 2017-07-20 13:52 | disposition left against medical advice (07) ==
LOC: ED 13:05
DX: Z53.9 Procedure and treatment not carried out, unspecified reason (principal)

== ENCOUNTER 2022-07-11 03:56 | Emergency (ER) | payer MEDICARE, OTHER ==
[2022-07-11] MEDS ORDERED: Zofran 4 MG/2 ML VIAL IV ONE (04:34)
[2022-07-11] MEDS ORDERED: TORAdol 30 mg Injection IV ONE (04:34)
[2022-07-11] MEDS ORDERED: Sodium Chloride 0.9% 1000 ML 1,000 ML IV STA (04:34)
[2022-07-11 04:37] LABS: Appearance CLEAR (CLEAR); Bilirubin SMALL (NEGATIVE); Dipstick done @ ? MAIN LAB; Glucose NEGATIVE (NEGATIVE); Ketones SMALL-15 (NEGATIVE); Nitrite NEGATIVE (NEGATIVE); Ph 5.5 (5-6); Protein,Urine Dip NEGATIVE (Negative); RBC SMALL Ery/ul (0-5); Specific Gravity 1.025 (1.005-1.025); Urobilinogen 0.2 mg/dL (0-1)
[2022-07-11 04:38] LABS: RBC 0-2 /HPF (0-2); WBC 0-2 /HPF (0-5)
[2022-07-11] MEDS ORDERED: Sodium Chloride 0.9% 1000 ML 1,000 ML ONE (04:38)
[2022-07-11] MEDS ORDERED: Zofran 4 MG/2 ML VIAL ONE (04:38)
[2022-07-11] MEDS ORDERED: TORAdol 30 mg Injection ONE (04:38)
[2022-07-11 04:39] LABS: Bacteria NONE SEEN /HPF (NEGATIVE); Urine Cultured Indicated? NO
[2022-07-11 04:42] LABS: Absolute Neutrophil Ct (ANC) 3.92 x10^3/uL (1.4-6.9); Basophil (Absolute #) 0.04 x10^3/uL (0-0.4); Eosinophil % 1.2 % (0.00-5.0); Eosinophil (Absolute #) 0.08 x10^3/uL (0-0.5); Hemoglobin 17.6 g/dL (12.5-18.0); Lymphocyte (Absolute #) 1.98 x10^3/uL (1.0-4.6); Lymphocytes % 29.9 % (24.0-44.0); Mean Cell Volume 92.7 fL (78-100); Mean Corpuscular Hgb Concent. 34.5 g/dL (32-36); Mean Platelet Volume 9.9 fL (7.5-11.0); Monocyte (Absolute #) 0.59 x10^3/uL (0.0-1.3); Monocytes % 8.9 % (0.0-12.0); Neutrophil % 59.1 % (36.0-66.0); Platelet Count 187 x10^3/uL (150-450); Red Cell Distribution Width 12.3 % (11.5-14.0); White Blood Count 6.6 x10^3/uL (4.0-10.5)
[2022-07-11 04:48] LABS: ALBUMIN 4.8 g/dL (3.5-5.0); ALKALINE PHOSPHATASE 98 U/L (38-126); AMYLASE 98 U/L (30-110); BLOOD UREA NITROGEN 17 mg/dL (9-20); CHLORIDE 100 mmol/L (98-107); Calcium 9.9 mg/dL (8.4-10.2); Carbon Dioxide 21 mmol/L (22-30); Creatinine 1 0.69 mg/dL (0.66-1.25); EST GLOMERULAR FILTRATION RATE > 60.0 ML/MIN; Glucose 113 mg/dL (74-106); LIPASE 151 U/L (23-300); Potassium 3.6 mmol/L (3.5-5.1); SGOT/AST 31 U/L (17-59); SGPT/ALT 27 U/L (0-50); Total Protein 8.9 g/dL (6.3-8.2)
[2022-07-11 04:50] LABS: SODIUM 134 mmol/L (137-145)
[2022-07-11 04:52] LABS: ANION GAP 16.6 MEQ/L (5-15)
[2022-07-11 04:53] LABS: INR 1.09 (0.8-3.0); PROTIME 11.5 SECONDS (9.4-12.5)
--- NOTE | 2022-07-11 04:54 | ERPHSYRPT ---
- History of Present Illness Time Seen by Provider: 07/11/22 04:15 Historian: patient Exam Limitations: no limitations Patient Subjective Stated Complaint: pt states "I thought it was my sciatica acting up on wednesday but then it moved to my lower stomach so I am not sure what it is." Triage Nursing Assessment: Pt ambulatory to room by self, pt alert and oriented x3, pt c/o RLQ, pt started having pain on wednesday in his R lower back and pt believed it to be sciatica pain, pain moved to RLQ, pt denies n/v/d, pt has been constipated and does not know when last BM was, pt afebrile, pt has hx of hepatits C and is daily drinker, pt hypertensive and skin is flushed. Physician History: Patient is a 71-year-old male who presents with a complaint of what he originally thought was sciatica about 10 days ago. However in the interim the pain is moved from the right CVA area and to the right flank and right lower quadrant. He denies any fever or chills has had some sweats he has had no change in urination. He has a history of hep C and is a daily drinker. Timing/Duration: day(s) (10) Activities at Onset: none Quality: stabbing, throbbing Abdominal Pain Onset Location: RLQ, flank (Right) Pain Radiation: flank, groin (Right) Severity of Pain-Max: moderate Severity of Pain-Current: moderate Modifying Factors: Improves With: nothing Previous symptoms: different symptoms Allergies/Adverse Reactions: adhesive tape Allergy (Verified 07/11/22 04:07) latex Allergy (Verified 07/11/22 04:07) Penicillins Allergy (Verified 07/11/22 04:07) aspirin Adverse Reaction (Verified 07/11/22 04:07) Home Medications: Amlodipine Besylate 5 mg [Norvasc 5 mg] 5 mg PO DAILY 02/18/17 [History] Metoprolol Tartrate 25 mg [Lopressor 25MG Tab] 25 mg PO BID 02/18/17 [History] raNITIdine HCL [Ranitidine HCl] 300 mg PO DAILY 05/20/17 [History] Apremilast [Otezla] 30 mg PO BID 07/11/22 [History] Hx Tetanus, Diphtheria Vaccination/Date Given: Yes Hx Influenza Vaccination/Date Given: No Hx Pneumococcal Vaccination/Date Given: Yes Immunizations Up to Date: Yes Travel Risk - International Travel Have you traveled outside of the country in past 3 weeks: No - Coronavirus Screening Are you exhibiting any of the following symptoms?: No Close contact with a COVID-19 positive Pt in past 14-21 Days: No - Vaccine Status Have you recieved a Covid-19 vaccination: No - Review of Systems Constitutional: No Fever, No Chills Eyes: No Symptoms Ears, Nose, & Throat: No Symptoms Respiratory: No Cough, No Dyspnea Cardiac: No Chest Pain, No Edema, No Syncope Abdominal/Gastrointestinal: No Abdominal Pain, No Nausea, No Vomiting, No Diarrhea Genitourinary Symptoms: Flank Pain, No Dysuria Musculoskeletal: Back Pain, No Neck Pain Skin: No Rash Neurological: No Dizziness, No Focal Weakness, No Sensory Changes Psychological: No Symptoms Endocrine: No Symptoms All Other Systems: Reviewed and Negative - Past Medical History Pertinent Past Medical History: Yes Neurological History: Seizures, Other ENT History: No Pertinent History Cardiac History: Hypertension, Other Respiratory History: Other Endocrine Medical History: Other Musculoskeletal History: Fractures, Osteoarthritis GI Medical History: No Pertinent History History: No Pertinent History Psycho-Social History: No Pertinent History, Anxiety Male Reproductive Disorders: No Pertinent History Other Medical History: EKG shows nerve damage in chest. If lies on R or L side his B UE goes numb. Seizure from allergy from aspirin, second seizure is due to a fall. Hep-C. Heart murmur. Multiple rib fractures, Head trauma in [place]. Fractured metacarpal in R hand. Fractured tailbone. - Past Surgical History Past Surgical History: Yes Neuro Surgical History: No Pertinent History Cardiac: No Pertinent History Respiratory: No Pertinent History Gastrointestinal: No Pertinent History, Hernia Repair Genitourinary: No Pertinent History Musculoskeletal: No Pertinent History Male Surgical History: No Pertinent History Other Surgical History: unobtainable - Social History Smoking Status: Current some day smoker Exposure to second hand smoke: No Drug Use: none Patient Lives Alone: Yes - Nursing Vital Signs Nursing Vital Signs: Initial Vital Signs Temperature 98.1 F 07/11/22 04:10 Pulse Rate 104 H 07/11/22 04:10 Respiratory Rate 18 07/11/22 04:10 Blood Pressure 193/104 07/11/22 04:10 O2 Sat by Pulse Oximetry 97 07/11/22 04:10 Pain Scale Pain Intensity 8 - Physical Exam General Appearance: mild distress, alert Eye Exam: PERRL/EOMI, eyes nml inspection Ears, Nose, Throat Exam: normal ENT inspection, pharynx normal, moist mucous membranes Neck Exam: normal inspection, non-tender, supple, full range of motion Respiratory Exam: normal breath sounds, lungs clear, No respiratory distress Cardiovascular Exam: regular rate/rhythm, normal heart sounds Gastrointestinal/Abdomen Exam: soft, No tenderness, No mass Back Exam: normal inspection, normal range of motion, CVA tenderness (Right), No vertebral tenderness Extremity Exam: normal inspection, normal range of motion, pelvis stable Neurologic Exam: alert, oriented x 3, cooperative, normal mood/affect, nml cerebellar function, sensation nml, No motor deficits Skin Exam: normal color, warm, dry Lymphatic Exam: adenopathy SpO2 Interpretation: normal SpO2: 97 O2 Delivery: Room Air Ordered Tests: Active Orders 24 hr Category Date Time Status IV Insertion STAT Care 07/11/22 04:34 Active ABDOMEN AND PELVIS W/0 CONTRAS [CT] Stat Exams 07/11/22 04:34 Taken AMYLASE Stat Lab 07/11/22 04:39 Completed CBC W DIFF Stat Lab 07/11/22 04:39 Completed CMP Stat Lab 07/11/22 04:39 Completed LIPASE Stat Lab 07/11/22 04:39 Completed Lactic Acid Stat Lab 07/11/22 04:34 Completed PROTIME WITH INR Stat Lab 07/11/22 04:39 Completed UA W/RFX CULTURE Stat Lab 07/11/22 04:26 Completed Medication Summary Discontinued Medications Generic Name Dose Route Start Last Admin Trade Name Marlyn PRN Reason Stop Dose Admin Sodium Chloride 1,000 mls @ 999 mls/hr 07/11/22 04:34 07/11/22 05:57 Sodium Chloride 0.9% 1000 Ml IV 07/11/22 05:34 Infused .Q1H1M STA Infusion Sodium Chloride Confirm 07/11/22 04:38 Sodium Chloride 0.9% 1000 Ml Administered 07/11/22 04:39 Dose 1,000 mls @ ud .ROUTE .STK-MED ONE Ketorolac Tromethamine 30 mg 07/11/22 04:34 07/11/22 04:47 Ketorolac Tromethamine 30 Mg/Ml Inj IV 07/11/22 04:35 30 mg STAT ONE Administration Ketorolac Tromethamine Confirm 07/11/22 04:38 Ketorolac Tromethamine 30 Mg/Ml Inj Administered 07/11/22 04:39 Dose 30 mg .ROUTE .STK-MED ONE Ondansetron HCl 4 mg 07/11/22 04:34 07/11/22 04:47 Ondansetron Hcl 4 Mg/2 Ml Vial IV 07/11/22 04:35 4 mg STAT ONE Administration Ondansetron HCl Confirm 07/11/22 04:38 Ondansetron Hcl 4 Mg/2 Ml Vial Administered 07/11/22 04:39 Dose 4 mg .ROUTE .STK-MED ONE Lab/Rad Data: Laboratory Result Diagrams 07/11/22 04:39 07/11/22 04:39 Laboratory Results 07/11/22 07/11/22 07/11/22 Range/Units 04:39 04:39 04:39 WBC 6.6 (4.0-10.5) x10^3/uL RBC 5.50 (4.1-5.6) x10^6/uL Hgb 17.6 (12.5-18.0) g/dL Hct 51.0 H (42-50) % MCV 92.7 (78-100) fL MCH 32.0 (26-32) pg MCHC 34.5 (32-36) g/dL RDW 12.3 (11.5-14.0) % Plt Count 187 (150-450) x10^3/uL MPV 9.9 (7.5-11.0) fL Gran % 59.1 (36.0-66.0) % Immature Gran % (Auto) 0.3 (0.00-0.4) % Nucleat RBC Rel Count 0.0 (0.00-0.1) % Eos # (Auto) 0.08 (0-0.5) x10^3/uL Immature Gran # (Auto) 0.02 (0.00-0.03) x10^3u/L Absolute Lymphs (auto) 1.98 (1.0-4.6) x10^3/uL Absolute Monos (auto) 0.59 (0.0-1.3) x10^3/uL Absolute Nucleated RBC 0.00 (0.00-0.01) x10^3u/L Lymphocytes % 29.9 (24.0-44.0) % Monocytes % 8.9 (0.0-12.0) % Eosinophils % 1.2 (0.00-5.0) % Basophils % 0.6 (0.0-0.4) % Absolute Granulocytes 3.92 (1.4-6.9) x10^3/uL Basophils # 0.04 (0-0.4) x10^3/uL PT 11.5 (9.4-12.5) SECONDS INR 1.09 (0.8-3.0) Sodium 134 L (137-145) mmol/L Potassium 3.6 (3.5-5.1) mmol/L Chloride 100 (98-107) mmol/L Carbon Dioxide 21 L (22-30) mmol/L Anion Gap 16.6 H (5-15) MEQ/L BUN 17 (9-20) mg/dL Creatinine 0.69 (0.66-1.25) mg/dL Estimated GFR > 60.0 ML/MIN Glucose 113 H (74-106) mg/dL Lactic Acid (0.4-2.0) Calcium 9.9 (8.4-10.2) mg/dL Total Bilirubin 1.00 (0.2-1.3) mg/dL AST 31 (17-59) U/L ALT 27 (0-50) U/L Alkaline Phosphatase 98 (38-126) U/L Serum Total Protein 8.9 H (6.3-8.2) g/dL Albumin 4.8 (3.5-5.0) g/dL Amylase 98 (30-110) U/L Lipase 151 (23-300) U/L Urinalys Dipstick Clnc Urine Color (YELLOW) Urine Appearance (CLEAR) Urine pH (5-6) Ur Specific [place] (1.005-1.025) POC Urine Protein Conf (Negative) Urine Ketones (NEGATIVE) Urine Nitrite (NEGATIVE) Urine Bilirubin (NEGATIVE) Urine Urobilinogen (0-1) mg/dL Urine Leukocytes (NEGATIVE) Urine WBC (Auto) (0-5) /HPF Urine RBC (Auto) (0-2) /HPF U Epithel Cells (Auto) (FEW) /HPF Urine Bacteria (Auto) (NEGATIVE) /HPF Urine RBC (0-5) Darrian/ul Unidentified Crystals (NEGATIVE) /HPF Ur Culture Indicated? Urine Glucose (NEGATIVE) mg/dL 07/11/22 07/11/22 Range/Units 04:34 04:26 WBC (4.0-10.5) x10^3/uL RBC (4.1-5.6) x10^6/uL Hgb (12.5-18.0) g/dL Hct (42-50) % MCV (78-100) fL MCH (26-32) pg MCHC (32-36) g/dL RDW (11.5-14.0) % Plt Count (150-450) x10^3/uL MPV (7.5-11.0) fL Gran % (36.0-66.0) % Immature Gran % (Auto) (0.00-0.4) % Nucleat RBC Rel Count (0.00-0.1) % Eos # (Auto) (0-0.5) x10^3/uL Immature Gran # (Auto) (0.00-0.03) x10^3u/L Absolute Lymphs (auto) (1.0-4.6) x10^3/uL Absolute Monos (auto) (0.0-1.3) x10^3/uL Absolute Nucleated RBC (0.00-0.01) x10^3u/L Lymphocytes % (24.0-44.0) % Monocytes % (0.0-12.0) % Eosinophils % (0.00-5.0) % Basophils % (0.0-0.4) % Absolute Granulocytes (1.4-6.9) x10^3/uL Basophils # (0-0.4) x10^3/uL PT (9.4-12.5) SECONDS INR (0.8-3.0) Sodium (137-145) mmol/L Potassium (3.5-5.1) mmol/L Chloride (98-107) mmol/L Carbon Dioxide (22-30) mmol/L Anion Gap (5-15) MEQ/L BUN (9-20) mg/dL Creatinine (0.66-1.25) mg/dL Estimated GFR ML/MIN Glucose (74-106) mg/dL Lactic Acid 1.3 (0.4-2.0) Calcium (8.4-10.2) mg/dL Total Bilirubin (0.2-1.3) mg/dL AST (17-59) U/L ALT (0-50) U/L Alkaline Phosphatase (38-126) U/L Serum Total Protein (6.3-8.2) g/dL Albumin (3.5-5.0) g/dL Amylase (30-110) U/L Lipase (23-300) U/L Urinalys Dipstick Clnc MAIN LAB Urine Color YELLOW (YELLOW) Urine Appearance CLEAR (CLEAR) Urine pH 5.5 (5-6) Ur Specific [place] 1.025 (1.005-1.025) POC Urine Protein Conf NEGATIVE (Negative) Urine Ketones SMALL-15 (NEGATIVE) Urine Nitrite NEGATIVE (NEGATIVE) Urine Bilirubin SMALL (NEGATIVE) Urine Urobilinogen 0.2 (0-1) mg/dL Urine Leukocytes NEGATIVE (NEGATIVE) Urine WBC (Auto) 0-2 (0-5) /HPF Urine RBC (Auto) 0-2 (0-2) /HPF U Epithel Cells (Auto) NONE (FEW) /HPF Urine Bacteria (Auto) NONE SEEN (NEGATIVE) /HPF Urine RBC SMALL (0-5) Darrian/ul Unidentified Crystals 2-5 (NEGATIVE) /HPF Ur Culture Indicated? NO Urine Glucose NEGATIVE (NEGATIVE) mg/dL - Departure Departure Disposition: Home Clinical Impression: Right flank pain Condition: Stable Critical Care Time: No Referrals: HOSPITAL,'S [Primary Care Provider] - Follow up/PCP as directed
[2022-07-11 06:41] VITALS: PULSE 80
[2022-07-11 06:51] VITALS: O2SAT 97
[2022-07-11] MEDS ORDERED: NORCO 5/325 MG ONE (07:26)
[2022-07-11 07:29] VITALS: BP 188/105
[2022-07-11] MEDS ORDERED: NORCO 5/325 MG PO ONE (07:36)
--- NOTE | 2022-07-11 08:19 | XRAY ---
Indication: Right abdomen/flank pain one week. Constipation. Multiple contiguous axial images obtained through the abdomen and pelvis without contrast. Comparison: None Lung bases clear. Heart not enlarged. Noncontrasted stomach and bowel loops appear nonobstructed with normal air-filled appendix. Cirrhotic appearing liver, 12.7 cm splenomegaly, and splenorenal varices. No free fluid/air. Nonobstructing 2-3 mm left renal calculus. Remaining gallbladder, pancreas, adrenal glands, kidneys, ureters, and bladder are unremarkable for noncontrast exam. Moderate scattered vascular calcifications without AAA. Osseous structures intact with mild osteopenia and mild/moderate degenerative changes throughout the thoracolumbar spine. No ventral or inguinal hernias. Impression: 1. Cirrhotic liver, splenomegaly, and splenorenal varices. 2. Nonobstructing left renal micro-calculus, arteriosclerotic disease, and chronic bony findings. 3. Remaining CT abdomen/pelvis without contrast exam is negative. Comment: Preliminary interpretation made by C. No critical discrepancy.
== END 2022-07-11 07:42 | disposition home or self-care (01) ==
LOC: ED 03:56
DX: M51.36 Other intervertebral disc degeneration, lumbar region (principal); R10.31 Right lower quadrant pain; I10 Essential (primary) hypertension; B19.20 Unspecified viral hepatitis C without hepatic coma; Z72.0 Tobacco use; Z79.899 Other long term (current) drug therapy; Z28.310 Unvaccinated for COVID-19; Z79.891 Long term (current) use of opiate analgesic; Z79.52 Long term (current) use of systemic steroids
CPT/HCPCS: 36000; 36415; 74176; 80053; 81015; 82150; 83605; 83690; 85025; 85610; 96360; 96374; 99284; J1885; J2405; A9270-GY

== ENCOUNTER 2022-08-17 08:47 | Emergency (ER) | payer OTHER ==
[2022-08-17 09:01] VITALS: BP 159/100; PULSE 93; O2SAT 95
[2022-08-17] MEDS ORDERED: MORPHINE SULFATE 4 MG INJ IM ONE (09:13)
[2022-08-17] MEDS ORDERED: Norflex 60 MG/2 ML IM ONE (09:14)
[2022-08-17] MEDS ORDERED: Norflex 60 MG/2 ML ONE (09:19)
[2022-08-17] MEDS ORDERED: MORPHINE SULFATE 4 MG INJ ONE (09:20)
--- NOTE | 2022-08-17 10:07 | ERPHSYRPT ---
- History of Present Illness Time Seen by Provider: 08/17/22 09:13 Source: patient Exam Limitations: no limitations Patient Subjective Stated Complaint: Back pain Triage Nursing Assessment: Patient ambulated back to ED and transferred self to bed. Patient A+O x3. Patient's skin pink, warm and dry. Patient complains of right lower back pain that goes into abdomen intermittent pain 05/20. Patient states a month ago he was worked up and neg for kidney stones but was told he had degenerative disk disease. [facility] was told he had a pinched nerve and prescibred gabapentin, which he took for 3 weeks but it didn't help. Patient states the pain is not going away. Physician History: 72 years old male with history of chronic back pain off and on, taking Neurontin but for the last 2 to 3 days pain is progressively worsening moderate to severe sharp right lower back with radiation to right lower extremity and some to the testicle area, aggravated with activity and no significant relieving factors. No numbness or weakness of lower extremity. No loss of bowel or bladder control. Because of pain patient feeling nauseated and has not been able to take his Neurontin. Pain is similar to previous episodes. Denies any fall or trauma. No difficulty urination. Timing/Duration: week(s), intermittent, worse Method of Injury: unknown Quality: sharp Back Pain Location: lumbar spine, paraspinous muscles Back Pain Radiation: buttocks, upper legs Severity of Pain-Max: severe Severity of Pain-Current: severe Modifying Factors: Worsens With: movement Associated Symptoms: lower back pain, muscle spasms, No sweating, No urinary incontinence, No loss of bowel control, No vomiting, No problems urinating, No weakness Previous symptoms: same symptoms as today Allergies/Adverse Reactions: adhesive tape Allergy (Verified 08/17/22 08:51) latex Allergy (Verified 08/17/22 08:51) Penicillins Allergy (Verified 08/17/22 08:51) aspirin Adverse Reaction (Verified 08/17/22 08:51) Home Medications: Amlodipine Besylate 5 mg [Norvasc 5 mg] 5 mg PO DAILY 02/18/17 [History] Metoprolol Tartrate 25 mg [Lopressor 25MG Tab] 25 mg PO BID 02/18/17 [History] raNITIdine HCL [Ranitidine HCl] 300 mg PO DAILY 05/20/17 [History] Apremilast [Otezla] 30 mg PO BID 07/11/22 [History] Hx Tetanus, Diphtheria Vaccination/Date Given: Yes Hx Influenza Vaccination/Date Given: No Hx Pneumococcal Vaccination/Date Given: Yes Immunizations Up to Date: Yes Travel Risk - International Travel Have you traveled outside of the country in past 3 weeks: No - Coronavirus Screening Are you exhibiting any of the following symptoms?: No Close contact with a COVID-19 positive Pt in past 14-21 Days: No - Vaccine Status Have you recieved a Covid-19 vaccination: No - Review of Systems Constitutional: No Symptoms Ears, Nose, & Throat: No Symptoms Respiratory: No Symptoms Cardiac: No Symptoms Abdominal/Gastrointestinal: No Symptoms Genitourinary Symptoms: No Symptoms Musculoskeletal: Back Pain Skin: No Symptoms Neurological: No Symptoms Psychological: No Symptoms Hematologic/Lymphatic: No Symptoms Immunological/Allergic: No Symptoms - Past Medical History Pertinent Past Medical History: Yes Neurological History: Seizures, Other ENT History: No Pertinent History Cardiac History: Hypertension, Other Respiratory History: Other Endocrine Medical History: Other Musculoskeletal History: Fractures, Osteoarthritis GI Medical History: No Pertinent History History: No Pertinent History Psycho-Social History: No Pertinent History, Anxiety Male Reproductive Disorders: No Pertinent History Other Medical History: EKG shows nerve damage in chest. If lies on R or L side his B UE goes numb. Seizure from allergy from aspirin, second seizure is due to a fall. Hep-C. Heart murmur. Multiple rib fractures, Head trauma in [place]. Fractured metacarpal in R hand. Fractured tailbone. - Past Surgical History Past Surgical History: Yes Neuro Surgical History: No Pertinent History Cardiac: No Pertinent History Respiratory: No Pertinent History Gastrointestinal: No Pertinent History, Hernia Repair Genitourinary: No Pertinent History Musculoskeletal: No Pertinent History Male Surgical History: No Pertinent History Other Surgical History: unobtainable - Social History Smoking Status: Current some day smoker How long have you smoked: years Exposure to second hand smoke: No Drug Use: none Patient Lives Alone: Yes - Nursing Vital Signs Nursing Vital Signs: Initial Vital Signs Temperature 98.5 F 08/17/22 08:52 Pulse Rate 93 H 08/17/22 08:52 Respiratory Rate 18 08/17/22 08:52 Blood Pressure 159/100 08/17/22 08:52 O2 Sat by Pulse Oximetry 95 08/17/22 08:52 Pain Scale Pain Intensity 8 - Physical Exam General Appearance: no apparent distress, alert Eye Exam: PERRL/EOMI Ears, Nose, Throat Exam: normal ENT inspection Neck Exam: normal inspection, full range of motion Respiratory Exam: normal breath sounds, lungs clear Cardiovascular Exam: regular rate/rhythm, normal heart sounds Gastrointestinal Exam: soft, normal bowel sounds, No tenderness, No guarding Male Genetalia Exam: normal genitalia Back Exam: normal inspection, decreased range of motion, muscle spasm, point tenderness (Right sacroiliac area), other (Straight leg raising test positive at 60 degrees on right), No CVA tenderness, No vertebral tenderness Extremity Exam: normal inspection, normal range of motion Neurologic Exam: alert, oriented x 3, cooperative, levelman II-XII nml as tested Skin Exam: normal color SpO2 Interpretation: normal SpO2: 95 O2 Delivery: Room Air Ordered Tests: Medication Summary Discontinued Medications Generic Name Dose Route Start Last Admin Trade Name Marlyn PRN Reason Stop Dose Admin Morphine Sulfate 4 mg 08/17/22 09:13 08/17/22 09:21 Morphine Sulfate 4 Mg/Ml Injection IM 08/17/22 09:14 4 mg STAT ONE Administration Morphine Sulfate Confirm 08/17/22 09:20 Morphine Sulfate 4 Mg/Ml Injection Administered 08/17/22 09:21 Dose 4 mg .ROUTE .STK-MED ONE Orphenadrine Citrate 30 mg 08/17/22 09:14 08/17/22 09:21 Orphenadrine Citrate 60 Mg/2 Ml Vial IM 08/17/22 09:15 30 mg STAT ONE Administration Orphenadrine Citrate Confirm 08/17/22 09:19 Orphenadrine Citrate 60 Mg/2 Ml Vial Administered 08/17/22 09:20 Dose 60 mg .ROUTE .STK-MED ONE - Progress Progress: improved Progress Note: 08/17/22 10:05 72 years old is evaluated for right low back pain similar to previous episodes. Negative neuro exam in lower extremity. Low suspicious for cauda equina. Pain is more in the right sacroiliac area. No abdominal tenderness at all. Given symptomatic treatment with morphine and Norflex, on reevaluation pain is improved and patient wants to go home. We will give him [place] to take as needed and outpatient pain management follow-up. Discussed signs symptoms of worsening needing return to ER which he seems understanding. Counseled pt/family regarding: diagnosis, need for follow-up - Departure Departure Disposition: Home Clinical Impression: Acute exacerbation of chronic low back pain Condition: Stable Critical Care Time: No Referrals: HOSPITAL,'[facility] [Primary Care Provider] - Follow up/PCP as directed (1-2 days for reevaluation) Instructions: Low Back Pain (DC), Sciatica (DC) Additional Instructions: Take pain medications as needed. Follow-up with your primary care at [facility] and may need a referral for pain management. Return to ER for intractable pain, numbness tingling weakness of lower extremity, loss of bowel or bladder control. Prescriptions: Hydrocodone/Acetaminophen [Hydrocodone-Acetamin 5-325 mg] 1 tab PO Q6HPRN PRN 3 Days #12 tablet MDD 4 PRN Reason: Pain
== END 2022-08-17 10:34 | disposition home or self-care (01) ==
LOC: ED 08:47
DX: G89.29 Other chronic pain (principal); M54.50 Low back pain, unspecified; I10 Essential (primary) hypertension; Z72.0 Tobacco use; Z79.891 Long term (current) use of opiate analgesic; Z79.899 Other long term (current) drug therapy; Z28.310 Unvaccinated for COVID-19
CPT/HCPCS: 96372; 99283; J2270; J2360

== ENCOUNTER 2022-09-21 12:03 | Emergency (ER) | payer OTHER ==
[2022-09-21 12:43] VITALS: PULSE 74; O2SAT 97
[2022-09-21 13:00] LABS: Absolute Neutrophil Ct (ANC) 7.44 x10^3/uL (1.4-6.9); Basophil (Absolute #) 0.04 x10^3/uL (0-0.4); Eosinophil % 1.1 % (0.00-5.0); Eosinophil (Absolute #) 0.11 x10^3/uL (0-0.5); Hematocrit 49.2 % (42-50); Hemoglobin 16.5 g/dL (12.5-18.0); Lymphocyte (Absolute #) 1.54 x10^3/uL (1.0-4.6); Lymphocytes % 15.7 % (24.0-44.0); Mean Cell Volume 92.7 fL (78-100); Mean Corpuscular Hemoglobin 31.1 pg (26-32); Mean Corpuscular Hgb Concent. 33.5 g/dL (32-36); Mean Platelet Volume 10.5 fL (7.5-11.0); Monocyte (Absolute #) 0.67 x10^3/uL (0.0-1.3); Monocytes % 6.8 % (0.0-12.0); Neutrophil % 75.7 % (36.0-66.0); Platelet Count 221 x10^3/uL (150-450); Red Blood Count 5.31 x10^6/uL (4.1-5.6); Red Cell Distribution Width 12.8 % (11.5-14.0); White Blood Count 9.8 x10^3/uL (4.0-10.5)
--- NOTE | 2022-09-21 13:23 | ERPHSYRPT ---
- History of Present Illness Time Seen by Provider: 09/21/22 13:17 Historian: patient Exam Limitations: no limitations Patient Subjective Stated Complaint: Pt c/o of right back pain that radiates to the front and he states that he is to have a consultation tomorrow with the [facility] about having his spleen removed due to having hep C in the past but he has had it treated and has cured it but they are afraid that his speen may rupture and he thinks that all this pain is his liver but palpatation leads this nurse to believe that it is flank pain Triage Nursing Assessment: Pt brought self to the ER, hypertensive, rates pain as 8-9/10, denies problem with urination, pain with palpatation to right flank and RLQ, pulses normal, skin n/w/d Physician History: Patient 72-year-old male presents to our ED for evaluation of right flank pain. Pain starts at the right back and radiates towards the front. Patient concerned as he has a history of hepatitis C. Pain started yesterday patient currently has an appointment scheduled for tomorrow at the [facility]. However patient was concerned in size come to our ED today. Described as an ache that radiates from the right back around towards the front. No associated chest pain or shortness of breath. No diarrhea no rash no nausea or vomiting. Symptoms are moderate in intensity. Patient declined pain medication. Patient voices no other complaints or concerns at this time. Portions of this note were created with voice recognition technology. There may be grammatical, spelling, punctuation or sound alike errors Timing/Duration: yesterday Activities at Onset: none Quality: aching Abdominal Pain Onset Location: flank Pain Radiation: RUQ Severity of Pain-Max: moderate Severity of Pain-Current: mild Modifying Factors: Improves With: nothing Associated Symptoms: denies symptoms, No chest pain, No diarrhea, No fever/chills, No nausea, No shortness of breath, No vomiting, No weakness Previous symptoms: no prior history Allergies/Adverse Reactions: adhesive tape Allergy (Verified 09/21/22 12:44) latex Allergy (Verified 09/21/22 12:44) Penicillins Allergy (Verified 09/21/22 12:44) aspirin Adverse Reaction (Verified 09/21/22 12:44) Home Medications: Amlodipine Besylate 5 mg [Norvasc 5 mg] 5 mg PO DAILY 02/18/17 [History] Metoprolol Tartrate 25 mg [Lopressor 25MG Tab] 25 mg PO BID 02/18/17 [History] Apremilast [Otezla] 30 mg PO BID 07/11/22 [History] Gabapentin [Neurontin] 300 mg PO TID 09/21/22 [History] Hx Tetanus, Diphtheria Vaccination/Date Given: Yes Hx Influenza Vaccination/Date Given: No Hx Pneumococcal Vaccination/Date Given: Yes Travel Risk - International Travel Have you traveled outside of the country in past 3 weeks: No - Coronavirus Screening Are you exhibiting any of the following symptoms?: No Close contact with a COVID-19 positive Pt in past 14-21 Days: No - Vaccine Status Have you recieved a Covid-19 vaccination: No - Review of Systems Constitutional: No Symptoms, No Fever, No Chills Eyes: No Symptoms Ears, Nose, & Throat: No Symptoms Respiratory: No Symptoms, No Cough, No Dyspnea Cardiac: No Symptoms, No Chest Pain, No Edema, No Syncope Abdominal/Gastrointestinal: No Symptoms, No Abdominal Pain, No Nausea, No Vomiting, No Diarrhea Genitourinary Symptoms: No Symptoms, No Dysuria Musculoskeletal: No Symptoms, No Back Pain, No Neck Pain Skin: No Symptoms, No Rash Neurological: No Symptoms, No Dizziness, No Focal Weakness, No Sensory Changes Psychological: No Symptoms Endocrine: No Symptoms Hematologic/Lymphatic: No Symptoms Immunological/Allergic: No Symptoms All Other Systems: Reviewed and Negative - Past Medical History Pertinent Past Medical History: Yes Neurological History: Seizures, Other ENT History: No Pertinent History Cardiac History: Hypertension, Other Respiratory History: Other Endocrine Medical History: Other Musculoskeletal History: Fractures, Osteoarthritis GI Medical History: No Pertinent History History: No Pertinent History Psycho-Social History: No Pertinent History, Anxiety Male Reproductive Disorders: No Pertinent History Other Medical History: EKG shows nerve damage in chest. If lies on R or L side his B UE goes numb. Seizure from allergy from aspirin, second seizure is due to a fall. Hep-C. Heart murmur. Multiple rib fractures, Head trauma in [place]. Fractured metacarpal in R hand. Fractured tailbone. - Past Surgical History Past Surgical History: Yes Neuro Surgical History: No Pertinent History Cardiac: No Pertinent History Respiratory: No Pertinent History Gastrointestinal: No Pertinent History, Hernia Repair Genitourinary: No Pertinent History Musculoskeletal: No Pertinent History Male Surgical History: No Pertinent History Other Surgical History: unobtainable - Social History Smoking Status: Current some day smoker How long have you smoked: years Exposure to second hand smoke: Yes Drug Use: none Patient Lives Alone: Yes - Nursing Vital Signs Nursing Vital Signs: Initial Vital Signs Temperature 97.4 F 09/21/22 12:31 Pulse Rate 74 09/21/22 12:31 Blood Pressure 156/86 09/21/22 12:31 O2 Sat by Pulse Oximetry 97 09/21/22 12:31 Pain Scale Pain Intensity 8 - Physical Exam General Appearance: no apparent distress, alert Eye Exam: PERRL/EOMI, eyes nml inspection Ears, Nose, Throat Exam: normal ENT inspection, TMs normal, pharynx normal, moist mucous membranes Neck Exam: normal inspection, non-tender, supple, full range of motion Respiratory Exam: normal breath sounds, lungs clear, airway intact, No chest tenderness, No respiratory distress Cardiovascular Exam: regular rate/rhythm, normal heart sounds, normal peripheral pulses Gastrointestinal/Abdomen Exam: soft, other (No right upper quadrant tenderness.), No tenderness, No mass Back Exam: normal inspection, normal range of motion, No CVA tenderness, No vertebral tenderness Extremity Exam: normal inspection, normal range of motion, pelvis stable Neurologic Exam: alert, oriented x 3, cooperative, normal mood/affect, nml cerebellar function, sensation nml, No motor deficits Skin Exam: normal color, warm, dry SpO2 Interpretation: normal SpO2: 97 O2 Delivery: Room Air - Course Nursing assessment & vital signs reviewed: Yes - CT Exams Abdomen/Pelvis CT Interpretation: Tele-radiologist Report (CT scan revealed a cirrhotic liver splenomegaly splenorenal varices nephrolithiasis osteopenia and spine arthritis) Ordered Tests: Active Orders 24 hr Category Date Time Status IV Insertion STAT Care 09/21/22 12:51 Active ABDOMEN AND PELVIS W/0 CONTRAS [CT] Stat Exams 09/21/22 12:47 Completed CBC W DIFF Stat Lab 09/21/22 13:00 Completed CMP Stat Lab 09/21/22 13:00 Completed LIPASE Stat Lab 09/21/22 13:00 Completed TROPONIN Q4H Lab 09/21/22 13:00 Completed TROPONIN Q4H Lab 09/21/22 17:00 Ordered TROPONIN Q4H Lab 09/21/22 21:00 Ordered Lab/Rad Data: Laboratory Result Diagrams 09/21/22 13:00 09/21/22 13:00 Laboratory Results 09/21/22 09/21/22 09/21/22 Range/Units 13:00 13:00 13:00 WBC 9.8 (4.0-10.5) x10^3/uL RBC 5.31 (4.1-5.6) x10^6/uL Hgb 16.5 (12.5-18.0) g/dL Hct 49.2 (42-50) % MCV 92.7 (78-100) fL MCH 31.1 (26-32) pg MCHC 33.5 (32-36) g/dL RDW 12.8 (11.5-14.0) % Plt Count 221 (150-450) x10^3/uL MPV 10.5 (7.5-11.0) fL Gran % 75.7 H (36.0-66.0) % Immature Gran % (Auto) 0.3 (0.00-0.4) % Nucleat RBC Rel Count 0.0 (0.00-0.1) % Eos # (Auto) 0.11 (0-0.5) x10^3/uL Immature Gran # (Auto) 0.03 (0.00-0.03) x10^3u/L Absolute Lymphs (auto) 1.54 (1.0-4.6) x10^3/uL Absolute Monos (auto) 0.67 (0.0-1.3) x10^3/uL Absolute Nucleated RBC 0.00 (0.00-0.01) x10^3u/L Lymphocytes % 15.7 L (24.0-44.0) % Monocytes % 6.8 (0.0-12.0) % Eosinophils % 1.1 (0.00-5.0) % Basophils % 0.4 (0.0-0.4) % Absolute Granulocytes 7.44 H (1.4-6.9) x10^3/uL Basophils # 0.04 (0-0.4) x10^3/uL Sodium 134 L (137-145) mmol/L Potassium 3.9 (3.5-5.1) mmol/L Chloride 99 (98-107) mmol/L Carbon Dioxide 25 (22-30) mmol/L Anion Gap 13.7 (5-15) MEQ/L BUN 14 (9-20) mg/dL Creatinine 0.68 (0.66-1.25) mg/dL Estimated GFR > 60.0 ML/MIN Glucose 118 H (74-106) mg/dL Calcium 9.3 (8.4-10.2) mg/dL Total Bilirubin 1.10 (0.2-1.3) mg/dL AST 35 (17-59) U/L ALT 23 (0-50) U/L Alkaline Phosphatase 149 H (38-126) U/L Troponin I < 0.012 (0.000-0.034) ng/mL Serum Total Protein 8.7 H (6.3-8.2) g/dL Albumin 4.4 (3.5-5.0) g/dL Lipase 74 (23-300) U/L - Progress Progress: improved Progress Note: Patient reassessed. Pain improved. CT abdomen pelvis reveals chronic changes. Patient was given a copy of today's CT scan. He has an appointment scheduled with his computer network support specialist tomorrow morning at the [facility]. Patient requested [place] for home. A prescription was forwarded to patient's pharmacy. No indication for further work-up at this time. Will discharge home. Patient agrees to follow-up with his planned scheduled appointment. He voices no other complaints or concerns at this time. Portions of this note were created with voice recognition technology. There may be grammatical, spelling, punctuation or sound alike errors 09/21/22 14:06 Counseled pt/family regarding: lab results, diagnosis, need for follow-up, rad results - Departure Departure Disposition: Home Clinical Impression: Cirrhosis of liver, Splenomegaly, Splenorenal varices, Nephrolithiasis, Osteopenia, Arthritis of spine, Flank pain Condition: Stable Critical Care Time: No Referrals: [facility]OSP[facility],'[facility] [Primary Care Provider] - Follow up/PCP as directed Additional Instructions: Discharge/Care Plan KAN MURRAY was seen on 09/21/22 in the Emergency Room. The patient was counseled regarding Diagnosis,Lab results, Imaging studies, need for follow up and when to return to the Emergency Room. Prescriptions given: Discharge Note I have spoken with the patient and/or caregivers. I have explained the patient's condition, diagnosis and treatment plan based on the information available to me at this time. I have answered the patient's and/or caregiver's questions and addressed any concerns. The patient and/or caregivers have as good understanding of the patient's diagnosis, condition and treatment plan as can be expected at this point. The vital signs have been stable. The patient's condition is stable and appropriate for discharge from the emergency department. The patient will pursue further outpatient evaluation with the primary care physician or other designated or consulting physician as outlined in the discharge instructions. The patient and/or caregivers are agreeable to this plan of care and follow-up instructions have been explained in detail. The patient and/or caregivers have received these instruction. The patient/and or caregivers are aware that any significant change in condition or worsening of symptoms should prompt an immediate return to this or the closest emergency department or call 911. Prescriptions: Hydrocodone/APAP 5/325 [[place] 5/325 mg] 1 each PO Q6H PRN PRN #10 tablet MDD 4 PRN Reason: Pain
[2022-09-21 13:31] LABS: ALBUMIN 4.4 g/dL (3.5-5.0); ALKALINE PHOSPHATASE 149 U/L (38-126); ANION GAP 13.7 MEQ/L (5-15); BLOOD UREA NITROGEN 14 mg/dL (9-20); CHLORIDE 99 mmol/L (98-107); Calcium 9.3 mg/dL (8.4-10.2); Carbon Dioxide 25 mmol/L (22-30); Creatinine 1 0.68 mg/dL (0.66-1.25); EST GLOMERULAR FILTRATION RATE > 60.0 ML/MIN; Glucose 118 mg/dL (74-106); LIPASE 74 U/L (23-300); Potassium 3.9 mmol/L (3.5-5.1); SGOT/AST 35 U/L (17-59); SGPT/ALT 23 U/L (0-50); SODIUM 134 mmol/L (137-145); Total Protein 8.7 g/dL (6.3-8.2)
--- NOTE | 2022-09-21 13:34 | XRAY ---
Indication: Right upper quadrant pain. Multiple contiguous axial images obtained through the abdomen and pelvis without contrast. Comparison: July 11, 2022 Lung bases demonstrates minimal dependent atelectasis. Heart is not enlarged. Noncontrasted stomach and bowel loops appear nonobstructed. Again cirrhotic appearing liver without ascites, borderline splenomegaly, and splenorenal varices. Stable nonobstructing bilateral renal punctate calculi. Remaining gallbladder, pancreas, spleen, adrenal glands, kidneys, ureters, and bladder are unremarkable for noncontrast exam. Again heavy scattered aortoiliac calcifications without AAA. Osseous structures intact again with mild osteopenia and degenerative changes throughout the spine. Impression: Stable CT abdomen/pelvis without contrast exam again demonstrating cirrhotic liver, splenomegaly, splenorenal varices, arteriosclerotic disease, nonobstructing bilateral renal micro-calculi, and chronic bony findings. No new/acute findings.
[2022-09-21 13:54] VITALS: BP 139/76
== END 2022-09-21 14:03 | disposition home or self-care (01) ==
LOC: ED 12:03
DX: K74.60 Unspecified cirrhosis of liver (principal); R16.1 Splenomegaly, not elsewhere classified; I86.8 Varicose veins of other specified sites; N20.0 Calculus of kidney; M85.80 Other specified disorders of bone density and structure, unspecified site; M47.9 Spondylosis, unspecified; R10.9 Unspecified abdominal pain; I10 Essential (primary) hypertension; Z79.899 Other long term (current) drug therapy; Z28.310 Unvaccinated for COVID-19; Z72.0 Tobacco use
CPT/HCPCS: 36000; 36415; 74176; 80053; 83690; 84484; 85025; 99283

== ENCOUNTER 2022-11-11 20:24 | Emergency (ER) | payer OTHER ==
[2022-11-11] MEDS ORDERED: SUBLIMAZE 100 MCG/2 ML IV ONE (20:37)
[2022-11-11] MEDS ORDERED: Zofran 4 MG/2 ML VIAL IV ONE (20:37)
[2022-11-11] MEDS ORDERED: Adacel Vial IM ONE (20:37)
[2022-11-11 21:06] LABS: Absolute Neutrophil Ct (ANC) 3.07 x10^3/uL (1.4-6.9); BASOPHIL % 0.2 % (0.0-0.4); Basophil (Absolute #) 0.01 x10^3/uL (0-0.4); Eosinophil % 1.5 % (0.00-5.0); Eosinophil (Absolute #) 0.06 x10^3/uL (0-0.5); Hematocrit 36.6 % (42-50); IMMATURE GRAN # 0.03 x10^3u/L (0.00-0.03); IMMATURE GRAN % 0.7 % (0.00-0.4); Lymphocyte (Absolute #) 0.47 x10^3/uL (1.0-4.6); Lymphocytes % 11.4 % (24.0-44.0); Mean Cell Volume 92.9 fL (78-100); Mean Corpuscular Hemoglobin 30.5 pg (26-32); Mean Corpuscular Hgb Concent. 32.8 g/dL (32-36); Mean Platelet Volume 9.4 fL (7.5-11.0); Monocyte (Absolute #) 0.49 x10^3/uL (0.0-1.3); Monocytes % 11.9 % (0.0-12.0); Neutrophil % 74.3 % (36.0-66.0); Platelet Count 225 x10^3/uL (150-450); Red Blood Count 3.94 x10^6/uL (4.1-5.6); Red Cell Distribution Width 14.1 % (11.5-14.0); White Blood Count 4.1 x10^3/uL (4.0-10.5)
[2022-11-11] MEDS ORDERED: SUBLIMAZE 100 MCG/2 ML ONE (21:12)
[2022-11-11] MEDS ORDERED: Zofran 4 MG/2 ML VIAL ONE (21:12)
[2022-11-11 21:20] LABS: ALBUMIN 3.5 g/dL (3.5-5.0); ALKALINE PHOSPHATASE 130 U/L (38-126); ANION GAP 10.3 MEQ/L (5-15); BLOOD UREA NITROGEN 12 mg/dL (9-20); CHLORIDE 98 mmol/L (98-107); Calcium 8.8 mg/dL (8.4-10.2); Carbon Dioxide 29 mmol/L (22-30); Creatinine 1 0.47 mg/dL (0.66-1.25); EST GLOMERULAR FILTRATION RATE > 60.0 ML/MIN; ETHYL ALCOHOL < 10 mg/dL (0-10); Glucose 131 mg/dL (74-106); LIPASE 12 U/L (23-300); Potassium 3.7 mmol/L (3.5-5.1); SGOT/AST 33 U/L (17-59); SGPT/ALT 17 U/L (0-50); SODIUM 134 mmol/L (137-145); Total Protein 7.7 g/dL (6.3-8.2)
--- NOTE | 2022-11-11 22:03 | ERPHSYRPT ---
- History of Present Illness Time Seen by Provider: 11/11/22 20:30 Source: patient Exam Limitations: no limitations Patient Subjective Stated Complaint: per ems, pt fell and hit his lt forehead. lt side. pt c/o pain in his lt shoulder and lt ribs. states he does have bone mets in those areas. Triage Nursing Assessment: pt alert and oriented to person,place, and situation. arrives per ambulance and transfers to stretcher with assist of 3. pt reports tenderness to lt scapular area and lt ribs- states is normal for him d/t bone mets in those areas. denies abd pain, plevic pain, neck pain. states he did hit his lt head. denies loss of consciousness. pupils equal and reactive. pt able tomove all ext without diff. Physician History: Patient is here with fall. Per group home staff patient is currently in a group home for cancer treatment. 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 Patient complaining of some very minor vertigo today which caused his symptoms. Patient states that he usually feels off balance secondary to his cancer. It is unclear if he knows the extent of his cancer diagnosis. It sounds like all of his family is in [place]. Currently has no complaints right now outside of pain. No chest pain, shortness of breath, obvious head trauma. Arrives in a c-collar. Timing/Duration: today Allergies/Adverse Reactions: adhesive tape Allergy (Verified 11/11/22 20:56) latex Allergy (Verified 11/11/22 20:56) Penicillins Allergy (Verified 11/11/22 20:56) aspirin Adverse Reaction (Verified 11/11/22 20:56) Home Medications: Metoprolol Tartrate 25 mg [Lopressor 25MG Tab] 50 mg PO BID 02/18/17 [History] ALPRAZolam 0.25 MG [xanAX 0.25 MG] 0.25 mg PO Q8HPRN PRN 11/11/22 [History] ALPRAZolam 0.25 MG [xanAX 0.25 MG] 0.25 mg PO TID 11/11/22 [History] Clobetasol Propionate Oint [Temovate 0.05% OINTMENT] 0 gm TOP BID 11/11/22 [History] Desonide 15 gm TP BID 11/11/22 [History] Diclofenac Sodium [Arthritis Pain Reliever] 50 gm TP Q6H PRN PRN 11/11/22 [Hist ory] calcitrioL [Calcitriol] 100 gm TP BID 11/11/22 [History] Hx Tetanus, Diphtheria Vaccination/Date Given: Yes Hx Influenza Vaccination/Date Given: No Hx Pneumococcal Vaccination/Date Given: Yes Immunizations Up to Date: Yes Travel Risk - International Travel Have you traveled outside of the country in past 3 weeks: No - Coronavirus Screening Are you exhibiting any of the following symptoms?: No Close contact with a COVID-19 positive Pt in past 14-21 Days: No - Vaccine Status Have you recieved a Covid-19 vaccination: No - Review of Systems Constitutional: Other (Forehead contusion), No Fever, No Chills Eyes: No Symptoms Ears, Nose, & Throat: No Symptoms Respiratory: No Cough, No Dyspnea Cardiac: No Chest Pain, No Edema, No Syncope Abdominal/Gastrointestinal: No Abdominal Pain, No Nausea, No Vomiting, No Diarrhea Genitourinary Symptoms: No Dysuria Musculoskeletal: Other (Left rib pain, left scapular pain.), No Back Pain, No Neck Pain Skin: No Rash Neurological: No Dizziness, No Focal Weakness, No Sensory Changes Psychological: No Symptoms Endocrine: No Symptoms All Other Systems: Reviewed and Negative - Past Medical History Pertinent Past Medical History: Yes Neurological History: Seizures, Other ENT History: No Pertinent History Cardiac History: Hypertension, Other Respiratory History: Other Endocrine Medical History: Other Musculoskeletal History: Fractures, Osteoarthritis GI Medical History: No Pertinent History History: No Pertinent History Psycho-Social History: No Pertinent History, Anxiety Male Reproductive Disorders: No Pertinent History Other Medical History: EKG shows nerve damage in chest. If lies on R or L side his B UE goes numb. Seizure from allergy from aspirin, second seizure is due to a fall. Hep-C. Heart murmur. Multiple rib fractures, Head trauma in [place]. Fractured metacarpal in R hand. Fractured tailbone. - Past Surgical History Past Surgical History: Yes Neuro Surgical History: No Pertinent History Cardiac: No Pertinent History Respiratory: No Pertinent History Gastrointestinal: No Pertinent History, Hernia Repair Genitourinary: No Pertinent History Musculoskeletal: No Pertinent History Male Surgical History: No Pertinent History Other Surgical History: unobtainable - Social History Smoking Status: Current some day smoker How long have you smoked: years Exposure to second hand smoke: No Drug Use: none Patient Lives Alone: No ([facility] [place]) - Nursing Vital Signs Nursing Vital Signs: Initial Vital Signs Temperature 97.9 F 11/11/22 20:32 Pulse Rate 114 H 11/11/22 20:32 Respiratory Rate 16 11/11/22 20:32 Blood Pressure 157/93 11/11/22 20:32 O2 Sat by Pulse Oximetry 97 11/11/22 20:32 Pain Scale Pain Intensity 5 - Physical Exam General Appearance: no apparent distress, alert Eye Exam: PERRL/EOMI, eyes nml inspection Ears, Nose, Throat Exam: normal ENT inspection, TMs normal, pharynx normal, moist mucous membranes Neck Exam: normal inspection, non-tender, supple, full range of motion Respiratory Exam: normal breath sounds, lungs clear, No respiratory distress Cardiovascular Exam: regular rate/rhythm, normal heart sounds, normal peripheral pulses Gastrointestinal/Abdomen Exam: soft, normal bowel sounds, No tenderness, No mass Back Exam: normal inspection, normal range of motion, No CVA tenderness, No vertebral tenderness Extremity Exam: normal inspection, normal range of motion, pelvis stable Neurologic Exam: alert, oriented x 3, cooperative, normal mood/affect, nml cerebellar function, nml station & gait, sensation nml, No motor deficits Skin Exam: normal color, warm, dry, No rash Lymphatic Exam: No adenopathy SpO2 Interpretation: normal SpO2: 94 Comments: 11/11/22 22:03 Patient is in a c-collar. No T-spine or L-spine tenderness. No step-offs or deformities. Left scapula tenderness. Mild left rib tenderness without obvious deformity. Left forehead does show some redness without obvious contusion or other injury. No trismus, able to fully extend neck, normal range of motion of neck without pain. Uvula is midline, no swelling of the mouth, noraml oropharynx. No exudate, no signs of meningitis, no floor of mouth swelling, no hot potato voice on exam. No buccal swelling, no gum bleeding, no signs of tooth abscess/infection. No obvious deformity, sensation intact, 2+ capillary refill, 2 point tactile discrimination intact. 5 out of 5 strength. Full range of motion without pain. Compartments are soft, nontender. Overlying skin shows no tenting, bruising, ecchymosis. - Course Nursing assessment & vital signs reviewed: Yes EKG Interpreted by Me: Sinus Rhythm Ordered Tests: Active Orders 24 hr Category Date Time Status IV Insertion STAT Care 11/11/22 20:37 Active ABDOMEN AND PELVIS W CONTRAST [CT] Stat Exams 11/11/22 20:37 Taken CERVICAL SPINE WO CONTRAST [CT] Stat Exams 11/11/22 20:38 Taken CHEST WITH CONTRAST [CT] Stat Exams 11/11/22 20:37 Taken HEAD WITHOUT CONTRAST [CT] Stat Exams 11/11/22 20:38 Taken CBC W DIFF Stat Lab 11/11/22 20:55 Completed CMP Stat Lab 11/11/22 20:55 Completed ETHYL ALCOHOL Stat Lab 11/11/22 20:55 Completed LIPASE Stat Lab 11/11/22 20:55 Completed TROPONIN Q4H Lab 11/11/22 20:55 Completed UA W/RFX UR CULTURE Stat Lab 11/11/22 20:37 Ordered UA W/RFX UR CULTURE Stat Lab 11/12/22 00:07 Received EKG STAT RT 11/11/22 21:56 Active Medication Summary Discontinued Medications Generic Name Dose Route Start Last Admin Trade Name Freq PRN Reason Stop Dose Admin Diphtheria/Tetanus/Acell Pertussis 0.5 ml 11/11/22 20:37 11/11/22 21:23 Tdap --Diph,Pertuss(Acell),Tet Vac/Pf 0.5 Ml Vial IM 11/11/22 20:38 Not Given .ONCE ONE Fentanyl Citrate 50 mcg 11/11/22 20:37 11/11/22 21:14 Fentanyl Citrate 100 Mcg/2 Ml* Vial IV 11/11/22 20:38 50 mcg STAT ONE Administration Fentanyl Citrate Confirm 11/11/22 21:12 Fentanyl Citrate 100 Mcg/2 Ml* Vial Administered 11/11/22 21:13 Dose 100 mcg .ROUTE .STK-MED ONE Ondansetron HCl 4 mg 11/11/22 20:37 11/11/22 21:14 Ondansetron Hcl 4 Mg/2 Ml Vial IV 11/11/22 20:38 4 mg STAT ONE Administration Ondansetron HCl Confirm 11/11/22 21:12 Ondansetron Hcl 4 Mg/2 Ml Vial Administered 11/11/22 21:13 Dose 4 mg .ROUTE .STK-MED ONE Lab/Rad Data: Laboratory Result Diagrams 11/11/22 20:55 11/11/22 20:55 Laboratory Results 11/11/22 11/11/22 11/11/22 Range/Units 20:55 20:55 20:55 WBC 4.1 (4.0-10.5) x10^3/uL RBC 3.94 L (4.1-5.6) x10^6/uL Hgb 12.0 L (12.5-18.0) g/dL Hct 36.6 L (42-50) % MCV 92.9 (78-100) fL MCH 30.5 (26-32) pg MCHC 32.8 (32-36) g/dL RDW 14.1 H (11.5-14.0) % Plt Count 225 (150-450) x10^3/uL MPV 9.4 (7.5-11.0) fL Gran % 74.3 H (36.0-66.0) % Immature Gran % (Auto) 0.7 H (0.00-0.4) % Nucleat RBC Rel Count 0.0 (0.00-0.1) % Eos # (Auto) 0.06 (0-0.5) x10^3/uL Immature Gran # (Auto) 0.03 (0.00-0.03) x10^3u/L Absolute Lymphs (auto) 0.47 L (1.0-4.6) x10^3/uL Absolute Monos (auto) 0.49 (0.0-1.3) x10^3/uL Absolute Nucleated RBC 0.00 (0.00-0.01) x10^3u/L Lymphocytes % 11.4 L (24.0-44.0) % Monocytes % 11.9 (0.0-12.0) % Eosinophils % 1.5 (0.00-5.0) % Basophils % 0.2 (0.0-0.4) % Absolute Granulocytes 3.07 (1.4-6.9) x10^3/uL Basophils # 0.01 (0-0.4) x10^3/uL Sodium 134 L (137-145) mmol/L Potassium 3.7 (3.5-5.1) mmol/L Chloride 98 (98-107) mmol/L Carbon Dioxide 29 (22-30) mmol/L Anion Gap 10.3 (5-15) MEQ/L BUN 12 (9-20) mg/dL Creatinine 0.47 L (0.66-1.25) mg/dL Estimated GFR > 60.0 ML/MIN Glucose 131 H (74-106) mg/dL Calcium 8.8 (8.4-10.2) mg/dL Total Bilirubin 0.90 (0.2-1.3) mg/dL AST 33 (17-59) U/L ALT 17 (0-50) U/L Alkaline Phosphatase 130 H (38-126) U/L Troponin I < 0.012 (0.000-0.034) ng/mL Serum Total Protein 7.7 (6.3-8.2) g/dL Albumin 3.5 (3.5-5.0) g/dL Lipase 12 L (23-300) U/L Ethyl Alcohol < 10 (0-10) mg/dL - Progress Progress: improved Progress Note: 11/11/22 22:03 Differential diagnosis includes pathologic fracture, head bleed, UTI, other infection. Plan for basic labs, UA, troponin, EKG looking for any other causes of syncope. Vertigo most likely could be due to his radiation, cancer treatment. We will obtain a head CT, CT C-spine, CT chest abdomen pelvis looking for fracture, head bleed, other injury. 11/12/22 00:22 CTs returned with several old fractures. Old rib fracture, no new head CT head change, no new C-spine fracture. Patient has 2 new compression fractures that were pathologic most likely due to radiation and cancer. L1 compression fracture, L2 compression fracture. I did discuss over the phone with on-call neurosurgery Dr. Familia kinney at [facility]. He recommended a TLSO back brace for the patient and nonsurgical follow-up. This is given that patient's exam is benign. He was able to make urine for us, no saddle anesthesia, no abnormal neurological findings on physical exam. Here in the emergency room we do not have the ability to get a TLSO brace. I discussed with our charge nurse and supervisor hospitality house. It was recommended that we send patient back to assisted care facility with an order for TLSO brace and nonweightbearing until they get this. We did discuss with nursing staff at group home about this. I did discuss all this with the patient. He was given red flag symptoms to return for. They will return here sooner for any new or changing symptoms. Patient states his understanding and will follow up with PCP as described. He can also follow-up with his cancer physician, orthopedic surgery, neurosurgery at [facility] as this is where he receives his cancer treatment. Counseled pt/family regarding: lab results, diagnosis, need for follow-up, rad results - Departure Departure Disposition: Home Clinical Impression: Lumbar vertebral fracture, pathologic, Fall at home Condition: Stable Critical Care Time: No Referrals: [facility]OS[facility],'[facility] [Primary Care Provider] - Follow up/PCP as directed Instructions: Preventing Falls in Older Adults
[2022-11-12 01:15] LABS: ADD URINE CULTURE? NO (NO); Appearance Clear (Clear); Bacteria None Seen /HPF (None Seen); Bilirubin Negative (Negative); Blood Negative (Negative); Epithelial Cells None Seen /HPF (None Seen); Glucose, Urine Negative (Negative); Hyaline Casts NONE SEEN /LPF (0-2); Ketones 15 (Negative); Leukocyte Esterase Negative (Negative); Nitrite Negative (Negative); Protein,Urine Dip Negative (Negative); Specific Gravity >=1.030 (1.005-1.030); WBC 0-2 /HPF (0-5)
[2022-11-12 01:25] LABS: Slide Review 1 YES
[2022-11-12 02:47] VITALS: BP 99/56; PULSE 112; O2SAT 97
--- NOTE | 2022-11-12 08:30 | XRAY ---
Indication: Status post fall. Multiple contiguous axial images obtained through the head without contrast. Comparison: May 19, 2017. Age-appropriate global atrophy. No acute intracranial hemorrhage, abnormal extra-axial fluid collection, or mass effect. Fourth ventricle is midline without hydrocephalus. Sherman-white matter differentiation preserved. Bony calvarium intact. Visualized paranasal sinuses and mastoid air cells are clear. Impression: Continued negative CT head without contrast exam.
--- NOTE | 2022-11-12 08:34 | XRAY ---
Indication: Status post fall. Multiple contiguous axial images obtained through the cervical spine. Sagittal and coronal reformatted images obtained. Comparison: May 19, 2017. Again age-related osteopenia. Axial images are negative for acute fracture, suspicious bony lesions, or spinal canal stenosis. There remains minimal/mild multilevel degenerative endplate spurring again greatest at C5-C6. Also grossly stable moderate bilateral degenerative facet hypertrophy, left greater than right. Sagittal and coronal reformatted images again demonstrates lordotic straightening and C5-C7 disc space narrowing. No acute compression fracture, subluxation, or jumped facet. Normal appearing craniocervical junction. Visualized noncontrasted soft tissues again demonstrates moderate bilateral carotid calcifications. CT head and CT chest reported separately. Impression: Again chronic findings including osteopenia, lordotic straightening, multilevel degenerative changes, and bilateral carotid calcifications. No new/acute abnormalities.
--- NOTE | 2022-11-12 08:44 | XRAY ---
Indication: Status post fall. Multiple contiguous axial images obtained through the chest using 80cc Isovue 370 contrast. Comparison: None Lungs demonstrates mild pulmonary emphysema and minimal left/mild right base dependent atelectasis. Minimal scattered fibrosis/scarring. No infiltrate, effusion, or pneumothorax. There is a partially calcified soft tissue mass between the posterior left 7 and 8 ribs. It measures at least 2.4 x 3.6 x 3.3 cm with bony erosions of the adjacent 8 rib concerning for primary versus metastatic malignancy. T10/T11 vertebral bodies demonstrate subtle small sclerosis concerning for osteoblastic metastasis. Incidental old nonunited posterior 8 rib fracture. Remaining bony thorax intact with osteopenia and minimal degenerative changes throughout the spine. Heart not enlarged. Aorta mildly arteriosclerotic without aneurysm/dissection. Left suprahilar soft tissue mass measuring at least 3.8 x 2.8 x 4.9 cm effacing the left main pulmonary artery favoring probable metastatic lymphadenopathy. CT abdomen/pelvis reported separately. Impression: 1. Suspicious left posterior partial calcified soft tissue mass between 7 and 8 ribs with bony erosions as detailed worrisome for primary versus metastatic malignancy. 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 2. Chronic findings including pulmonary emphysema, osteopenia, and arteriosclerotic disease.
--- NOTE | 2022-11-12 09:01 | XRAY ---
Indication: Status post fall. Multiple contiguous axial images obtained through the abdomen and pelvis using 80 cc Isovue 370 contrast. Comparison: September 21, 2022. CT chest reported separately. Noncontrasted stomach and bowel loops appear nonobstructed. No free fluid/air. Both kidneys enhance and excrete with stable nonobstructing left renal micro-calculus. Stable right renal cysts, cirrhotic appearing liver without ascites, 13.7 cm splenomegaly, and splenorenal varices. No free fluid/air. Right L1 and left L2 vertebral bodies demonstrates osseous destructive lytic lesions with now pathologic compression fractures favoring metastasis. L1 segment demonstrates 50-75% height loss and L2 segment demonstrates approximately 25% height loss. Right L1 lytic lesion also demonstrates soft tissue component measuring at least 3.5 x 4.2 cm in greatest axial dimension extending into the right foramina/spinal canal mildly effacing the spinal cord. Similar osseous destructive lytic lesion seen of the left inferior pubic ramus/pubic symphysis. Additional 1.1 cm posterior cortical lytic lesion seen of the proximal right femur shaft. Remaining gallbladder, pancreas, spleen, adrenal glands, kidneys, ureters, and bladder are unremarkable. There remains a heavy scattered vascular calcifications. No AAA or pathologic retroperitoneal lymphadenopathy. Remaining osseous structures intact again with osteopenia and mild/moderate multilevel degenerative spondylosis. Impression: 1. New L1/L2 pathologic compression fractures. Osteolytic metastasis involving L1/L2, left inferior pubic ramus/pubic symphysis, and proximal right femur. L1 lesion also demonstrates soft tissue component extending into the right neural foramina/spinal canal with mass effect. 2. Again chronic findings including cirrhosis, splenomegaly, splenorenal varices, right renal cysts, nonobstructing left renal micro-calculus, arteriosclerotic disease, osteopenia, and multilevel degenerative spondylosis.
== END 2022-11-12 02:21 | disposition home or self-care (01) ==
LOC: ED 20:24
DX: Z04.3 Encounter for examination and observation following other accident (principal); M84.58XA Pathological fracture in neoplastic disease, other specified site, initial encounter for fracture; R42 Dizziness and giddiness; I10 Essential (primary) hypertension; Z79.899 Other long term (current) drug therapy; Z28.310 Unvaccinated for COVID-19; Z72.0 Tobacco use
CPT/HCPCS: 36000; 36415; 70450; 71260; 72125; 74177; 80053; 81001; 83690; 84484; 85025; 96374; 96375; 99284; G0480; 80307; J2405; J3010